=== PATIENT | female | born 2000 | race Caucasian/White ===

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

== ENCOUNTER 2018-02-24 13:29 | Inpatient (IN) | payer MEDICARE, OTHER ==
[2018-02-24 13:37] VITALS: BMI 25.0
[2018-02-24] MEDS ORDERED: SODIUM CHLORIDE 1,000 ML IV STA (14:03)
[2018-02-24] MEDS ORDERED: ACETAMINOPHEN 1000 MG/100 ML VIAL (NON FORMULARY) IVPB ONE (14:03)
[2018-02-24] MEDS ORDERED: ACETAMINOPHEN INJECTION 100 ML IVPB ONE (14:23)
[2018-02-24 14:53] LABS: BASO % 0.5 % (0-2.0); HEMATOCRIT 43.1 % (32.4-45.2); HEMOGLOBIN 14.2 GM/dL (10.7-15.3); LIPASE 122 U/L (73-393); LYMPH % 7.1 % (8-40); MCH 30.2 pg (25.7-33.7); MCHC 32.9 g/dl (32.0-36.0); MEAN CELL VOLUME 91.9 fl (80-96); MEAN PLT VOLUME 9.8 fl (7.5-11.1); MONO % 4.3 % (3.8-10.2); NEUT % 86.1 % (42.8-82.8); PLATELET COUNT 197 K/MM3 (134-434); RBC 4.69 M/mm3 (3.60-5.2); RDW 12.6 % (11.6-15.6); WHITE BLOOD COUNT 14.2 K/mm3 (4.0-10.0)
--- NOTE | 2018-02-24 14:54 | PDOC ---
History of Present Illness - General Chief Complaint: Pain Stated Complaint: RT SIDE PAIN Time Seen by Provider: 02/24/18 13:52 History Source: Patient Exam Limitations: No Limitations - History of Present Illness Initial Comments: 02/24/18 14:34 Pt is a previously healthy 17yo f presenting to ED with complaints of RLQ abdominal pain, fever that started last night. She descibes the pain as stabbing , 9/10 does not radiate, inspiration, sitting up and movement make it worse. Associated with nausea and feelings of passing out. She also admits to feeling short of breath since she cannot breath deeply due to pain. She also has nasal congestion. She denies vomiting, diarrhea, blood in stool, headache, throat pain, urinary symptoms, vaginal bleeding. LMP was 5 mnths. ago. Last meal was yesterday. Drank a snapple 1 hour before coming to ED PMH: none PSH: none Meds: Depo shot 2 months ago Allergies: kndsa Social: occasional marijuana use. Past History - Past Medical History Allergies/Adverse Reactions: Allergies Allergy/AdvReac Type Severity Reaction Status Date / Time No Known Allergies Allergy Verified 02/24/18 13:37 Home Medications: Ambulatory Orders NK [No Known Home Medication] 09/15/16 COPD: No - Suicide/Smoking/Psychosocial Hx Smoking History: Never smoked Have you smoked in the past 12 months: No Hx Alcohol Use: No Drug/Substance Use Hx: No Substance Use Type: None Review of Systems - Review of Systems Constitutional: Yes: Chills, Fever. No: Loss of Appetite HEENTM: Yes: Nose Congestion. No: Recent change in vision, Double Vision, Throat Pain Respiratory: Yes: Shortness of Breath. No: Cough Cardiac (ROS): Yes: Chest Pain (with inspiration). No: Lightheadedness, Palpitations ABD/GI: Yes: Nausea, Abdominal cramping (RLQ pain). No: Blood Streaked Bowels, Constipated, Diarrhea, Vomiting : No: Burning, Dysuria, Hematuria Musculoskeletal: No: Joint Pain, Muscle Pain, Muscle Weakness, Neck Pain Neurological: No: Headache, Numbness, Paresthesia, Seizure *Physical Exam - Vital Signs Last Vital Signs Temp Pulse Resp BP Pulse Ox 101.4 F H 125 H 20 107/57 99 02/24/18 13:35 02/24/18 13:35 02/24/18 13:35 02/24/18 13:35 02/24/18 13:35 - Physical Exam General Appearance: Yes: Nourished, Appropriately Dressed, Mild Distress HEENT: positive: EOMI, LAI, Pharynx Normal. negative: Scleral Icterus (R), Scleral Icterus (L), Pharyngeal Erythema, Sinus Tenderness Neck: positive: Trachea midline, Supple. negative: Lymphadenopathy (R), Lymphadenopathy (L) Respiratory/Chest: positive: Lungs Clear, Normal Breath Sounds. negative: Crackles, Rales, Stridor, Wheezing Cardiovascular: positive: Regular Rhythm, S1, S2. negative: Regular Rate ( tachycadia), Edema, JVD, Murmur Vascular Pulses: Carotid (R): 2+, Carotid (L): 2+, Dorsalis-Pedis (R): 2+, Doralis-Pedis (L): 2+ Female Pelvic Exam: positive: normal external exam, cervical os closed, CMT, discharge (not mucopurulent), other (Exam limited by pt being higly uncomfortable prior to exam. CMT possible, but pt said she was bearing down throughout exam which exacerbats her RLQ pain.). negative: lesions Gastrointestinal/Abdominal: positive: Normal Bowel Sounds, Soft, Tenderness ( RUQ and RLQ). negative: Distended, Guarding, Rebound Musculoskeletal: positive: Normal Inspection. negative: CVA Tenderness Extremity: positive: Normal Capillary Refill Integumentary: positive: Normal Color, Dry, Warm. 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 relations manager II-XII NML intact, Fully Oriented, Alert, Normal Mood/ Affect, Normal Response, Motor Strength /5 ED Treatment Course - LABORATORY CBC & Chemistry Diagram: 02/24/18 14:10 02/24/18 15:20 - Medications Given in the ED: ED Medications Discontinued Medications Generic Name Dose Route Start Last Admin Trade Name Fredomenico PRN Reason Stop Dose Admin Acetaminophen 1,000 mg 02/24/18 14:03 02/24/18 14:28 Ofirmev Injection - IVPB 02/24/18 14:04 1,000 mg ONCE ONE Administration Medical Decision Making - Medical Decision Making 02/24/18 15:42 Pt is a previously healthy 17yo f presenting to ED with complaints of RLQ abdominal pain, fever that started last night. DDX: appendicitis, cholecystitis, pancreatitis, PID, ectopic high suspicion for appendicitis. Will order labs, lipase, lactate, blood cultures, UA, Ucultures, . if negative will send to CT. negative. Will send pt to CT. 02/24/18 19:04 CT showed gallstones in gallbladder. Did not visualize appendix UA positive for infection. Given Ceftriaxone. Consulted Dr. Ying. 02/24/18 19:06 Pt said she had chlamydia when she was 7 and was given treatment. Pt was very tearful, I did not question pt more. Per Dr. Ying, pt had kidney stones in the past on her R side. Unsure if CMT due to patient uncomfortable and bearing down throughout exam. Obtained GC culture. Pt had hx of kidney stones in the past. Ordered renal u/s, transabdominal and transvaginal us. DDX: appendicitis v. PID. V. nephrolithiasis v. Pyelonephritis Pt admitted under Dr. Baumann 02/24/18 23:02 *DC/Admit/Observation/Transfer Diagnosis at time of Disposition: Pyelonephritis RLQ abdominal tenderness Qualifiers: Presence of rebound: absent Qualified Code(s): R10.813 - Right lower quadrant abdominal tenderness UTI (urinary tract infection) Qualifiers: Urinary tract infection type: site unspecified Hematuria presence: without hematuria Qualified Code(s): N39.0 - Urinary tract infection, site not specified Appendicitis, unqualified Qualifiers: Appendicitis type: unspecified Qualified Code(s): K37 - Unspecified appendicitis - Discharge Dispostion Condition at time of disposition: Good Decision to Admit order: Yes - Referrals - Patient Instructions - Post Discharge Activity
[2018-02-24] MEDS ORDERED: morphine CARPU-JECT 2 MG/1 ML DISP.SYRIN IVPUSH ONE ×2 (15:26→20:42)
--- NOTE | 2018-02-24 15:43 | PDOC ---
Attending Attestation - Resident Resident Name: Sa Mimaira - ED Attending Attestation I have performed the following: I have examined & evaluated the patient, The case was reviewed & discussed with the resident, I agree w/resident's findings & plan, Exceptions are as noted - HPI HPI: 02/24/18 15:43 17-year-old female patient with no past medical history presents with right lower quadrant pain since yesterday. Reports fever, chills. Denies dysuria. Reports some nausea. - Physicial Exam PE: 02/24/18 15:44 GENERAL: Awake, alert, and fully oriented, in no acute distress HEAD: No signs of trauma EYES: EOMI, sclera anicteric, conjunctiva clear ENT: Auricles normal inspection, hearing grossly normal, nares patent, oropharynx clear without exudates. Moist mucosa NECK: Normal ROM, supple ABDOMEN: Soft, TTP RLQ. No guarding, no rebound. No masses EXTREMITIES: Normal range of motion, no edema. No clubbing or cyanosis. No cords, erythema, or tenderness NEUROLOGICAL: Cranial nerves II through XII grossly intact. Normal speech, normal gait SKIN: Warm, Dry, normal turgor, no rashes or lesions noted. - Medical Decision Making 02/24/18 15:45 Vital Signs Temp Pulse Resp BP Pulse Ox 101.4 F H 125 H 20 107/57 99 02/24/18 13:35 02/24/18 13:35 02/24/18 13:35 02/24/18 13:35 02/24/18 13:35 Funds are concerning for acute appendicitis. Obtain labs and a CAT scan and pelvis. Urine test and reassess. 02/24/18 17:22 CBC, BMP 02/24/18 14:10 02/24/18 15:20 CMP Sodium 136 mmol/L (136-145) 02/24/18 15:20 Potassium 3.9 mmol/L (3.5-5.1) 02/24/18 15:20 Chloride 103 mmol/L (98-107) 02/24/18 15:20 Carbon Dioxide 23 mmol/L (21-32) 02/24/18 15:20 Anion Gap 10 MMOL/L (8-16) 02/24/18 15:20 BUN 12 mg/dL (7-18) 02/24/18 15:20 Creatinine 0.7 mg/dL (0.55-1.02) 02/24/18 15:20 Creat Clearance w eGFR > 60 (>60) 02/24/18 15:20 Random Glucose 80 mg/dL (74-106) 02/24/18 15:20 Lactic Acid 1.4 mmol/L (0.0-2.0) 02/24/18 14:10 Calcium 8.9 mg/dL (8.5-10.1) 02/24/18 15:20 Total Bilirubin 1.0 mg/dL (0.2-1.0) 02/24/18 15:20 AST 20 U/L (15-37) 02/24/18 15:20 ALT 20 U/L (12-78) 02/24/18 15:20 Alkaline Phosphatase 97 U/L (45-117) 02/24/18 15:20 Creatine Kinase 102 IU/L (26-192) 02/24/18 14:10 Troponin I < 0.02 ng/ml (0.00-0.05) 02/24/18 14:10 Total Protein 8.5 g/dl (6.4-8.2) H 02/24/18 15:20 Albumin 4.5 g/dl (3.4-5.0) 02/24/18 15:20 Lipase 122 U/L (73-393) 02/24/18 14:10 Serum , Qual Negative 02/24/18 13:53 Urine Test Results Urine Color Yellow 02/24/18 15:55 Urine Appearance Cloudy 02/24/18 15:55 Urine pH 5.0 (5.0-8.0) D 02/24/18 15:55 Ur Specific [place] 1.017 (1.001-1.035) 02/24/18 15:55 Urine Protein Negative (NEGATIVE) 02/24/18 15:55 Urine Glucose (UA) Negative (NEGATIVE) 02/24/18 15:55 Urine Ketones 1+ (NEGATIVE) H 02/24/18 15:55 Urine Blood 2+ (NEGATIVE) H 02/24/18 15:55 Urine Nitrite Positive (NEGATIVE) 02/24/18 15:55 Urine Bilirubin Negative (<2.0 mg/dL) 02/24/18 15:55 Ur Leukocyte Esterase 3+ (NEGATIVE) H D 02/24/18 15:55 Ur Epithelial Cells Rare /HPF (FEW) 02/24/18 15:55 Urine Bacteria Rare /hpf (NONE SEEN) 02/24/18 15:55 Urine Mucus Rare 02/24/18 15:55 UA positive for nitrate and 3+ leuk. Will treat as UTI as well. IV antibiotics. CT abdomen and pelvis pending. 02/24/18 18:14 CT scan shows nonvisualization of the appendix, hyperdense material with the gallbaldder which could represent artifact, which could be cholethiasis. Will need RUQ ultrasound. Consult surgery given inability to visualize CT. 02/24/18 18:19 Given the patient's history is concerning for appendicitis, and equivocal CT finding, the patient will likely need at minimum observation admission for serial abdominal exams on IV antibiotics.
[2018-02-24 15:45] LABS: ALBUMIN 4.5 g/dl (3.4-5.0); ALK PHOS 97 U/L (45-117); ANION GAP 10 MMOL/L (8-16); BLOOD UREA NITROGEN 12 mg/dL (7-18); CALCIUM 8.9 mg/dL (8.5-10.1); CHLORIDE 103 mmol/L (98-107); CO2 23 mmol/L (21-32); CREATININE 0.7 mg/dL (0.55-1.02); GLUCOSE,RANDOM 80 mg/dL (74-106); POTASSIUM 3.9 mmol/L (3.5-5.1); SGPT/ALT 20 U/L (12-78); SODIUM 136 mmol/L (136-145); TOT PROT 8.5 g/dl (6.4-8.2)
[2018-02-24 15:46] LABS: SGOT/AST 20 U/L (15-37)
[2018-02-24] MEDS ORDERED: MORPHINE SULFATE 2 MG/ML VIAL ONE ×2 (15:55→20:47)
[2018-02-24 16:14] LABS: URINE APPEARANCE CLOUDY; URINE BILIRUBIN NEGATIVE (<2.0 mg/dL); URINE COLOR YELLOW; URINE GLUCOSE (UA) NEGATIVE (NEGATIVE); URINE KETONE 1+ (NEGATIVE); URINE NITRITE POSITIVE (NEGATIVE); URINE PROTEIN NEGATIVE (NEGATIVE)
[2018-02-24 16:45] LABS: URINE LEUK ESTERASE 3+ (NEGATIVE)
[2018-02-24 16:46] LABS: EPI CELLS RARE /HPF (FEW); URINE BACTERIA RARE /hpf (NONE SEEN); URINE MUCUS RARE
[2018-02-24] MEDS ORDERED: CEFTRIAXONE 1 GM in DEXTROSE 5%-WATER - 100 ML IVPB ONE (18:20)
[2018-02-24] MEDS ORDERED: CEFTRIAXONE 1 GM/50 ML BAG ONE (18:30)
[2018-02-24] MEDS ORDERED: SODIUM CHLORIDE 1,000 ML IV SCH ×2 (19:15→23:00)
--- NOTE | 2018-02-24 20:22 | PDOC ---
*Physical Exam - Vital Signs Last Vital Signs Temp Pulse Resp BP Pulse Ox 98.0 F 110 H 18 110/56 100 02/24/18 18:27 02/24/18 18:27 02/24/18 18:27 02/24/18 18:27 02/24/18 18:27 ED Treatment Course - LABORATORY CBC & Chemistry Diagram: 02/24/18 14:10 02/24/18 15:20 - ADDITIONAL ORDERS Additional order review: Laboratory Results 02/24/18 02/24/18 02/24/18 15:55 15:20 14:10 Sodium 136 Potassium 3.9 Chloride 103 Carbon Dioxide 23 Anion Gap 10 BUN 12 Creatinine 0.7 Creat Clearance w eGFR > 60 Random Glucose 80 Lactic Acid 1.4 Calcium 8.9 Total Bilirubin 1.0 AST 20 ALT 20 Alkaline Phosphatase 97 Creatine Kinase Troponin I Total Protein 8.5 H Albumin 4.5 Lipase Serum , Qual Urine Color Yellow Urine Appearance Cloudy Urine pH 5.0 D Ur Specific [place] 1.017 Urine Protein Negative Urine Glucose (UA) Negative Urine Ketones 1+ H Urine Blood 2+ H Urine Nitrite Positive Urine Bilirubin Negative Urine Urobilinogen 2.0 H Ur Leukocyte Esterase 3+ H D Urine WBC (Auto) 182 Urine RBC (Auto) 8 Ur Epithelial Cells Rare Urine Bacteria Rare Urine Mucus Rare 02/24/18 02/24/18 14:10 13:53 Sodium Potassium Chloride Carbon Dioxide Anion Gap BUN Creatinine Creat Clearance w eGFR Random Glucose Lactic Acid Calcium Total Bilirubin AST ALT Alkaline Phosphatase Creatine Kinase 102 Troponin I < 0.02 Total Protein Albumin Lipase 122 Serum , Qual Negative Urine Color Urine Appearance Urine pH Ur Specific [place] Urine Protein Urine Glucose (UA) Urine Ketones Urine Blood Urine Nitrite Urine Bilirubin Urine Urobilinogen Ur Leukocyte Esterase Urine WBC (Auto) Urine RBC (Auto) Ur Epithelial Cells Urine Bacteria Urine Mucus 02/24/18 14:10 RBC 4.69 MCV 91.9 MCHC 32.9 RDW 12.6 MPV 9.8 Neutrophils % 86.1 H Lymphocytes % 7.1 L Monocytes % 4.3 Eosinophils % 2.0 Basophils % 0.5 - Medications Given in the ED: ED Medications Discontinued Medications Generic Name Dose Route Start Last Admin Trade Name Freq PRN Reason Stop Dose Admin Acetaminophen 1,000 mg 02/24/18 14:03 02/24/18 14:28 Ofirmev Injection - IVPB 02/24/18 14:04 1,000 mg ONCE ONE Administration Sodium Chloride 1,000 mls @ 1,000 mls/hr 02/24/18 14:03 02/24/18 14:28 Normal Saline - IV 02/24/18 15:02 1,000 mls/hr ASDIR STA Administration Ceftriaxone Sodium 1 gm/ 100 mls @ 200 mls/hr 02/24/18 18:20 02/24/18 18:44 Dextrose IVPB 02/24/18 18:49 200 mls/hr ONCE ONE Administration Protocol Morphine Sulfate 2 mg 02/24/18 15:26 02/24/18 16:28 Morphine Injection - IVPUSH 02/24/18 15:27 Not Given ONCE ONE Medical Decision Making - Medical Decision Making 02/24/18 20:21 Pt was signed out to me. She continues to have fever; Pt has either UTI/ pyelonephritis vs appendicitis. She was given ceftriaxone in the ER. Surgery consult is at bedside. Pt will be admitted to med surg for observation. 02/24/18 23:24 Pt has had multipke sonograms ordered. She is awaiting sono results. She was treated with more IVF and IV motrin as per surgery. *DC/Admit/Observation/Transfer Diagnosis at time of Disposition: Pyelonephritis RLQ abdominal tenderness Qualifiers: Presence of rebound: absent Qualified Code(s): R10.813 - Right lower quadrant abdominal tenderness UTI (urinary tract infection) Qualifiers: Urinary tract infection type: site unspecified Hematuria presence: without hematuria Qualified Code(s): N39.0 - Urinary tract infection, site not specified Appendicitis, unqualified Qualifiers: Appendicitis type: unspecified Qualified Code(s): K37 - Unspecified appendicitis - Discharge Dispostion Condition at time of disposition: Good Decision to Admit order: Yes - Referrals - Patient Instructions - Post Discharge Activity
[2018-02-24] MEDS ORDERED: IBUPROFEN 800 MG/8 ML IJ IVPB ONE ×2 (20:27→20:47)
--- NOTE | 2018-02-24 20:35 | PN ---
Teaching Attending Note Name of Resident: Cristian Thakur ATTENDING PHYSICIAN STATEMENT I saw and evaluated the patient. I reviewed the resident's note and discussed the case with the resident. I agree with the resident's findings and plan as documented. SUBJECTIVE: Patient is a 17 year old woman with history of kidney stones who presents to the ER with complaints of right flank pain radiating to the RLQnal pain, fever that started last night. She describes the pain as stabbing, 9/10 does not radiate, inspiration, sitting up and movement make it worse. Associated with nausea and feelings of passing out. She also admits to feeling short of breath since she cannot breath deeply due to pain. She also has nasal congestion. She denies vomiting, diarrhea, blood in stool, headache, throat pain, urinary symptoms, vaginal bleeding. No abnormal vaginal discharge. LMP was 5 months ago. Had Depo injections 2 months ago - which prevent her from having her periods. OBJECTIVE: Alert Vital Signs Period Temp Pulse Resp BP Sys/Moreno Pulse Ox Last 24 Hr 98 F-101.4 F 110-125 18-20 105-110/56-59 98-100 HEENT: No Jaundice, eye redness or discharge, PERRLA, EOMI. Normocephalic, atraumatic. External ears are normal and hearing is grossly intact. No nasal discharge. Neck: Supple, nontender. No palpable adenopathy or thyromegaly. No JVD Chest: Good effort. Clear to auscultation and percussion. Heart: Regular. No S3, rub or murmur Abdomen: Not distended, soft, RLQ tenderness and CVAT; no HSM. No rebound or guarding. Normoactive bowel sounds. Ext: Peripheral pulses intact. No leg edema. Skin: Warm and dry. No petechiae, rash or ecchymosis. Neuro: Alert. Oriented x3. CN 2-12 grossly intact. Sensation grossly intact in all four extremities and DTR are symmetric. Pelvic exam: Done by the ER staff showed diffuse tenderness with any movement - no specific cervical motion tenderness and no abnormal discharge Current Medications Generic Name Dose Route Start Last Admin Trade Name Freq PRN Reason Stop Dose Admin Sodium Chloride 1,000 mls @ 150 mls/hr 02/24/18 19:15 Normal Saline - IV ASDIR [facility] Home Medications Medication Instructions Recorded NK [No Known Home Medication] 09/15/16 Abnormal Lab Results 02/24/18 02/24/18 02/24/18 14:10 15:20 15:55 WBC 14.2 H Absolute Neuts (auto) 12.2 H Neutrophils % 86.1 H Lymphocytes % 7.1 L Total Protein 8.5 H Urine Ketones 1+ H Urine Blood 2+ H Urine Urobilinogen 2.0 H Ur Leukocyte Esterase 3+ H D ASSESSMENT AND PLAN: 1. Pyelonephritis - CT abdomen did not show a kidney stone, but the appendix was not visualized. Started on Rocephin 1 gm IV q 24 hours. Continue IV NS. No evidence of appendicitis on CT scan. IV morphine for pain control. Cultures taken for N. gonorrhea and chlamydia. 2. DVT prophylaxis - Lovenox 40 mg SQ q 24 hours. 3. Advance directives - Full code
[2018-02-24] MEDS ORDERED: SODIUM CHLORIDE 0.9% 500 ML INFUS.BAG IV ONE (20:42)
--- NOTE | 2018-02-24 21:10 | CONSULT ---
Consult Consult Specialty:: General Surgery Referred by:: Nusrat Guillermo Reason for Consultation:: RLQ pain, fever, wbc - History of Present Illness Chief Complaint: RLQ pain, fever History of Present Illness: 17yo healthy F with h/o kidney stones 2-3 mos ago dx at [facility], treated with PCN and ibuprofen, has had stuffy nose for about 2 weeks. Was normal yesterday at breakfast and lunch, at work, then walking to her car up a hill from work ~7:30 pm, had difficulty breathing normally. When she got out of the car and walked again, she felt RLQ pain, initially thought she might be constipated. She had a normal, soft formed stool, but the pain persisted. It has always been RLQ pain. She had a small piece of chicken but nothing else for dinner. She also had subjective fever and chills last night, which was better this morning. She went to work today for a couple of hours, but the pain became severe, and she got dizzy/lightheaded, and left to come to the ER ~1pm. She has had some Snapple fruit punch today, up till arrival, but nothing else and is not hungry. She thought about taking ibuprofen for pain, but couldn't eat anything, so did not. She has had nausea, but no vomiting. The pain is worse than when she had her kidney stones (the pain then was on the left, but she said the stones were supposedly on the right) and also hurts in back on the right. More in back when lying down, more in front when up and walking. It hurts when she moves or tightens up her body, though the medicine has helped a little in the ER. She is febrile in ER 101.4, with wbc 14.2 and UA + for LE/ nitrite/WBC 182/RBC 8/1+ ketones/rare epi/rare bacteria. She got a dose of Ceftriaxone, pain meds and IV fluids. CT was done with IV contrast only, initially without clear visualization of appendix, but no inflammatory changes in the region. On review with radiology, appendix is likely seen, but does not appear enlarged or inflamed. She has a dominant follicle in right ovary with some endometrial fluid present, but no free fluid. No visualized stones in kidneys or ureters. No hydronephrosis. Possible subtle changes in right kidney that could be compatible with pyelonephritis, but no significant surrounding inflammation. ER did pelvic exam, during which patient was in pain, though CMT seemed negative; there was no discharge, and GC culture was taken. Surgery is asked to evaluate for possible appendicitis. She is seen and examined in stretcher in ER holding with boyfriend at bedside. She is in pain and crying some but able to cooperate with exam. She feels very warm to touch, but is feeling chilled. She voided just prior to the pelvic exam. She is thirsty/feeling dry, but not hungry. She admits to unprotected sexual activity last 2-3 nights ago, but denies history of STDs. Boyfriend also denies symptoms of STDs. Per ER - she had chlamydia in the past at age 7. 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 denies: Recent Change in Vision HENT: reports: Nasal Congestion (x ~2 wks now). denies: Difficult Swallowing, Throat Pain Neck: denies: Swollen Glands, Tenderness Cardiovascular: denies: Chest Pain, Palpitations Respiratory: reports: SOB (hurts to take a deep breath), SOB on Exertion. denies: Cough Gastrointestinal: reports: Abdominal Pain (with hpi), Nausea (with hpi). denies : Constipation, Diarrhea, Vomiting Genitourinary: denies: Burning, Discharge, Dysuria, Hematuria, Menses, Vaginal Bleeding Musculoskeletal: reports: Back Pain (with hpi). denies: Joint Pain, Muscle Pain Integumentary: denies: Change in Color, Rash Neurological: reports: Dizziness (this morning at work). denies: Headache, Syncope Psychiatric: denies: Anxiety, Depression Physical Exam Vital Signs: Vital Signs Temperature 98.0 F 02/24/18 18:27 Pulse Rate 110 H 02/24/18 18:27 Respiratory Rate 18 02/24/18 18:27 Blood Pressure 110/56 02/24/18 18: O2 Sat by Pulse Oximetry (%) 100 02/24/18 18:27 Constitutional: Yes: Well Nourished, Calm, Moderate Distress (secondary to pain) , Other (crying, skin hot and dry) Eyes: Yes: Conjunctiva Clear, EOM Intact, Tearing, Other (glasses) HENT: Yes: Atraumatic, Normocephalic Neck: Yes: Supple, Trachea Midline Cardiovascular: Yes: Tachycardia. No: Pulse Irregular Respiratory: Yes: Regular, CTA Bilaterally Gastrointestinal: Yes: Normal Bowel Sounds, Soft, Tenderness (RLQ at McBurney's and slightly above, also around to R CVA, less RUQ referred to RLQ). No: Distention, Tenderness, Epigastrium, Tenderness, Rebound ...Rectal Exam: Yes: Deferred Renal/: Yes: CVA Tenderness - Right. No: CVA Tenderness - Left, Menses Present, Vaginal Discharge (per ER pelvic) Musculoskeletal: No: Joint Stiffness, Joint Swelling Extremities: No: Cool, Cyanosis Edema: No Peripheral Pulses WNL: Yes Integumentary: Yes: Body Piercing (periumbilical), Tattoos. No: Jaundice, Rash Neurological: Yes: Alert, Oriented Labs: CBC, BMP 02/24/18 14:10 02/24/18 15:20 Imaging - Results Cat Scan: Report Reviewed, Image Reviewed (images reviewed personally and discussed with radiologist by phone - appendix likely visualized with tip by iliac vessel, no significant inflammatory changes, + intraluminal air; no apparent renal or ureteral stones; uterus with some endometrial fluid, dominant follicle in right ovary, no significant free fluid, no obstruction, no free air) Ultrasound: Pending Problem List - Problems (1) RLQ abdominal pain Assessment/Plan: suggestive of appendicitis, but CT without inflammatory changes in the area and normal-appearing appendix could be related to PID or R pyelonephritis/UTI? US pelvic, transvag and renal pending given Ceftriaxone already for UTI would give nonnarcotic pain meds prn for now agree with observation pending results of above consider OBSTETRICS NURSE PRACTITIONER consultation serial exams trend labs consider repeat CT imaging if other studies negative keep NPO, aggressive IV fluids pending clinical course and above studies, would consider offering diagnostic laparoscopy, possible appendectomy Code(s): R10.31 - RIGHT LOWER QUADRANT PAIN (2) RLQ abdominal tenderness Assessment/Plan: also R CVA tenderness Code(s): R10.813 - RIGHT LOWER QUADRANT ABDOMINAL TENDERNESS Qualifiers: Presence of rebound: absent Qualified Code(s): R10.813 - Right lower quadrant abdominal tenderness (3) Fever presenting with conditions classified elsewhere Code(s): R50.81 - FEVER PRESENTING WITH CONDITIONS CLASSIFIED ELSEWHERE (4) Leukocytosis Code(s): D72.829 - ELEVATED WHITE BLOOD CELL COUNT, UNSPECIFIED Qualifiers: Leukocytosis type: bandemia Qualified Code(s): D72.825 - Bandemia (5) Nausea alone Code(s): R11.0 - NAUSEA (6) Anorexia Code(s): R63.0 - ANOREXIA (7) Acute cystitis with hematuria Assessment/Plan: only 8 RBC present on UA WBC/nitrite/LE positive - rare bacteria send urine culture GC culture sent by ER at pelvic Code(s): N30.01 - ACUTE CYSTITIS WITH HEMATURIA
[2018-02-24 21:23] LABS: INR 1.46 (0.83-1.09); PROTHROMBIN TIME (PATIENT) 16.5 SEC (9.7-13.0)
[2018-02-24] MEDS ORDERED: MORPHINE SULFATE 2 MG/ML VIAL IVPUSH PRN (22:28)
--- NOTE | 2018-02-24 22:47 | HP ---
CHIEF COMPLAINT: Abdominal pain PCP: none HISTORY OF PRESENT ILLNESS: The patient is a 17 yo f w/ PMH Kidney Stones who comes into the ED c/o a 1 day hx abdominal pain and fever. The patient describes an acute onset RLQ abdominal pain earlier today felt while walking to her car. The patient describes the pain as 9/10 in intensity, sharp in quality and present simultaneously in the RLQ and in the right flank. The pain is constant, exacerbated by movement or tensing of her body, and alleviated by lying still. The pain is associated with nausea, lightheadedness, subjective fevers and chills, but the patient denies vomiting. The Patient states that this pain is different from the pain she felt when she had her kidney stone. Patient denies CP, SOB, dysuria, urinary frequency, urgency. LMP 5 months ago. Patient receives depo shots for contraception with the last one being 2 months ago. Patient is in monogmous sexual relationship with her boyfriend. Pelvic exam done by ED resident showed no purulent discharge and diffuse pain throughout exam, making assessment of cervical motion tenderness difficult. ER course was notable for: (1) WBC 14.2 (2) UA showing 3+ leuk, 182 WBC and 2+ blood (3) 1g rocephin (4) CT ap w/ nonvisualizaion on appendix per [facility] Recent Travel: none PAST MEDICAL HISTORY: Kidney stones approx 4 months ago diagnosed by [address] and treated with pain control and PCN PAST SURGICAL HISTORY: denies Social History: Smoking: denies Alcohol: denies Drugs: occasional marijuana smoker Family History: Grandmother with stage 4 colon cancer diagnosed in her 60's Allergies No Known Allergies Allergy (Verified 02/24/18 13:37) HOME MEDICATIONS: Home Medications Medication Instructions Recorded NK [No Known Home Medication] 09/15/16 REVIEW OF SYSTEMS CONSTITUTIONAL: Absent: diaphoresis, generalized weakness, weight change HEENT: Absent: rhinorrhea, nasal congestion, throat pain, throat swelling, difficulty swallowing, mouth swelling, ear pain, eye pain, visual changes CARDIOVASCULAR: Absent: chest pain, syncope, palpitations, irregular heart rate, lightheadedness , peripheral edema RESPIRATORY: Absent: cough, dyspnea with exertion, orthopnea, wheezing, stridor, hemoptysis GASTROINTESTINAL: Absent: vomiting, diarrhea, constipation, melena, hematochezia GENITOURINARY: Absent: dysuria, frequency, urgency, hesitancy, hematuria, flank pain, genital pain MUSCULOSKELETAL: Absent: myalgia, arthralgia, joint swelling, back pain, neck pain SKIN: Absent: rash, itching, pallor HEMATOLOGIC/IMMUNOLOGIC: Absent: easy bleeding, easy bruising, lymphadenopathy, frequent infections ENDOCRINE: Absent: unexplained weight gain, unexplained weight loss, heat intolerance, cold intolerance NEUROLOGIC: Absent: headache, focal weakness or paresthesias, dizziness, unsteady gait, seizure, mental status changes, bladder or bowel incontinence PSYCHIATRIC: Absent: anxiety, depression, suicidal or homicidal ideation, hallucinations. PHYSICAL EXAMINATION Vital Signs - 24 hr 02/24/18 02/24/18 02/24/18 13:35 16:01 18:27 Temperature 101.4 F H 98 F 98.0 F Pulse Rate 125 H Pulse Rate [ 110 H 110 H Apical] Respiratory 20 18 Rate Blood Pressure 107/57 Blood Pressure 105/59 110/56 [Left Arm] O2 Sat by Pulse 99 98 100 Oximetry (%) 02/24/18 19:45 Temperature Pulse Rate Pulse Rate [ Apical] Respiratory Rate Blood Pressure Blood Pressure [Left Arm] O2 Sat by Pulse 100 Oximetry (%) GENERAL: Awake, alert, and fully oriented, in no acute distress. HEAD: Normal with no signs of trauma. EYES: Pupils equal, round and reactive to light, extraocular movements intact, sclera anicteric, conjunctiva clear. No lid lag. EARS, NOSE, THROAT: oropharynx clear without exudates. Moist mucous membranes. NECK: Normal range of motion, supple without lymphadenopathy, JVD, or masses. LUNGS: Breath sounds equal, clear to auscultation bilaterally. No wheezes, and no crackles. No accessory muscle use. HEART: Regular rhythm, Tachycardic, normal S1 and S2 without murmur, rub or gallop. ABDOMEN: Soft, not distended, normoactive bowel sounds, no guarding. There is tenderness to palpation in the RLQ and the right flank without rebound. There is CVA tenderness on the right. LOWER EXTREMITIES: 2+ pulses, warm, well-perfused. No calf tenderness. No peripheral edema. NEUROLOGICAL: Cranial nerves II-X intact. Normal speech. PSYCHIATRIC: Cooperative. Good eye contact. Appropriate mood and affect. SKIN: Warm, dry, normal turgor, no rashes or lesions noted, normal capillary refill. Laboratory Results - last 24 hr 02/24/18 02/24/18 02/24/18 13:53 14:10 14:10 WBC 14.2 H RBC 4.69 Hgb 14.2 Hct 43.1 MCV 91.9 MCH 30.2 MCHC 32.9 RDW 12.6 Plt Count 197 MPV 9.8 Absolute Neuts (auto) 12.2 H Neutrophils % 86.1 H Lymphocytes % 7.1 L Monocytes % 4.3 Eosinophils % 2.0 Basophils % 0.5 Nucleated RBC % 0 PT with INR INR PTT (Actin FS) Sodium Potassium Chloride Carbon Dioxide Anion Gap BUN Creatinine Creat Clearance w eGFR Random Glucose Lactic Acid Calcium Total Bilirubin AST ALT Alkaline Phosphatase Creatine Kinase 102 Troponin I < 0.02 Total Protein Albumin Lipase 122 Serum , Qual Negative Urine Color Urine Appearance Urine pH Ur Specific [place] Urine Protein Urine Glucose (UA) Urine Ketones Urine Blood Urine Nitrite Urine Bilirubin Urine Urobilinogen Ur Leukocyte Esterase Urine WBC (Auto) Urine RBC (Auto) Ur Epithelial Cells Urine Bacteria Urine Mucus Blood Type Antibody Screen 02/24/18 02/24/18 02/24/18 14:10 15:20 15:55 WBC RBC Hgb Hct MCV MCH MCHC RDW Plt Count MPV Absolute Neuts (auto) Neutrophils % Lymphocytes % Monocytes % Eosinophils % Basophils % Nucleated RBC % PT with INR INR PTT (Actin FS) Sodium 136 Potassium 3.9 Chloride 103 Carbon Dioxide 23 Anion Gap 10 BUN 12 Creatinine 0.7 Creat Clearance w eGFR > 60 Random Glucose 80 Lactic Acid 1.4 Calcium 8.9 Total Bilirubin 1.0 AST 20 ALT 20 Alkaline Phosphatase 97 Creatine Kinase Troponin I Total Protein 8.5 H Albumin 4.5 Lipase Serum , Qual Urine Color Yellow Urine Appearance Cloudy Urine pH 5.0 D Ur Specific [place] 1.017 Urine Protein Negative Urine Glucose (UA) Negative Urine Ketones 1+ H Urine Blood 2+ H Urine Nitrite Positive Urine Bilirubin Negative Urine Urobilinogen 2.0 H Ur Leukocyte Esterase 3+ H D Urine WBC (Auto) 182 Urine RBC (Auto) 8 Ur Epithelial Cells Rare Urine Bacteria Rare Urine Mucus Rare Blood Type Antibody Screen 02/24/18 02/24/18 02/24/18 21:02 21:02 21:02 WBC RBC Hgb Hct MCV MCH MCHC RDW Plt Count MPV Absolute Neuts (auto) Neutrophils % Lymphocytes % Monocytes % Eosinophils % Basophils % Nucleated RBC % PT with INR INR PTT (Actin FS) 28.0 Sodium Potassium Chloride Carbon Dioxide Anion Gap BUN Creatinine Creat Clearance w eGFR Random Glucose Lactic Acid 1.1 Calcium Total Bilirubin AST ALT Alkaline Phosphatase Creatine Kinase Troponin I Total Protein Albumin Lipase Serum , Qual Urine Color Urine Appearance Urine pH Ur Specific [place] Urine Protein Urine Glucose (UA) Urine Ketones Urine Blood Urine Nitrite Urine Bilirubin Urine Urobilinogen Ur Leukocyte Esterase Urine WBC (Auto) Urine RBC (Auto) Ur Epithelial Cells Urine Bacteria Urine Mucus Blood Type B POSITIVE Antibody Screen Negative 02/24/18 21:02 WBC RBC Hgb Hct MCV MCH MCHC RDW Plt Count MPV Absolute Neuts (auto) Neutrophils % Lymphocytes % Monocytes % Eosinophils % Basophils % Nucleated RBC % PT with INR 16.50 H INR 1.46 H PTT (Actin FS) Sodium Potassium Chloride Carbon Dioxide Anion Gap BUN Creatinine Creat Clearance w eGFR Random Glucose Lactic Acid Calcium Total Bilirubin AST ALT Alkaline Phosphatase Creatine Kinase Troponin I Total Protein Albumin Lipase Serum , Qual Urine Color Urine Appearance Urine pH Ur Specific [place] Urine Protein Urine Glucose (UA) Urine Ketones Urine Blood Urine Nitrite Urine Bilirubin Urine Urobilinogen Ur Leukocyte Esterase Urine WBC (Auto) Urine RBC (Auto) Ur Epithelial Cells Urine Bacteria Urine Mucus Blood Type Antibody Screen ASSESSMENT/PLAN: The patient is a 17 yo f w/ PMH nehphrolithiasis who comes into the ED c/o a 1 day hx RLQ and right flank pain found to have UTI. #Abdominal and flank pain likely 2/2 pyelonephritis r/o appendicitis -CTAP [facility] read cannot visualize appendix; per surgery note, repeat read shows appendix without inflammation -f/u final read -UA positive for UTI -upreg negative -transvaginal, abdominal and renal US ordered in ED -Urine culture ordered -s/p 1g rocephin in ED -c/w rocephin 1g daily -surgery consulted -f/u GC, chlamydia cultures -NS @ 100 #FEN -NS @ 100 -lytes WNL -regular diet #Prophy -Lovenox 40mg q24 SQ #Dispo -admit med surg Visit type - Emergency Visit Emergency Visit: Yes ED Registration Date: 02/24/18 Care time: The patient presented to the Emergency Department on the above date and was hospitalized for further evaluation of their emergent condition. - New Patient This patient is new to me today: Yes Date on this admission: 02/25/18 - Critical Care Critical Care patient: No Hospitalist Screening - Colonoscopy Questionnaire Colonoscopy Questionnaire: Colonoscopy Questionnaire - Patient: 50 - 75 years old and never had a screening colonoscopy: Unknown History of colon or rectal polyps, or CA: Unknown History of IBD, Crohn's disease or UC: Unknown History of abdominal radiation therapy as a child: Unknown - Relative: 1 with colon or rectal CA, or polyps at age 60 or younger: Unknown Colon or rectal CA diagnosed at age 45 or younger: Unknown Multiple relatives with colon or rectal CA: Unknown - Outcome: Screening Result: Negative Screen
[2018-02-25 08:25] LABS: HEMATOCRIT 36.8 % (32.4-45.2); HEMOGLOBIN 12.2 GM/dL (10.7-15.3); MCH 30.4 pg (25.7-33.7); MCHC 33.1 g/dl (32.0-36.0); MEAN CELL VOLUME 91.9 fl (80-96); MEAN PLT VOLUME 9.8 fl (7.5-11.1); PLATELET COUNT 156 K/MM3 (134-434); WHITE BLOOD COUNT 17.3 K/mm3 (4.0-10.0)
[2018-02-25 09:00] LABS: CHLORIDE 109 mmol/L (98-107); POTASSIUM 3.9 mmol/L (3.5-5.1); SODIUM 139 mmol/L (136-145)
[2018-02-25] MEDS ORDERED: DEXTROSE 5%-WATER - 50 ML IVPB ONE (09:04)
[2018-02-25] MEDS ORDERED: cefTRIAXone SODIUM 1 GM VIAL ONE (09:04)
[2018-02-25 09:06] LABS: ANION GAP 11 MMOL/L (8-16); BLOOD UREA NITROGEN 8 mg/dL (7-18); CALCIUM 8.1 mg/dL (8.5-10.1); CO2 19 mmol/L (21-32); CREATININE 0.5 mg/dL (0.55-1.02); GLUCOSE,RANDOM 76 mg/dL (74-106); MAGNESIUM 2.1 mg/dL (1.8-2.4); PHOSPHOROUS 2.9 mg/dL (2.5-4.9)
[2018-02-25] MEDS ORDERED: ACETAMINOPHEN 1000 MG/100 ML VIAL (NON FORMULARY) IVPB PRN (09:19)
[2018-02-25 09:21] LABS: INR 1.58 (0.83-1.09); PROTHROMBIN TIME (PATIENT) 17.9 SEC (9.7-13.0)
--- NOTE | 2018-02-25 09:24 | PN ---
Physical Exam: SUBJECTIVE: Patient seen and examined Patient is c/o having right flank pain started 2 days ago with worsening symptoms today, tachycardic and warm to touch. No similar episodes before. Had 2 UTIs in the past as per Patient. OBJECTIVE: Vital Signs Temperature 98.1 F 02/25/18 07:25 Pulse Rate 117 H 02/25/18 07:25 Respiratory Rate 18 02/25/18 03:00 Blood Pressure 99/61 02/25/18 07:25 O2 Sat by Pulse Oximetry (%) 100 02/25/18 03:00 Selected Entries 02/24/18 02/24/18 02/24/18 13:35 16:01 18:27 Temperature 101.4 F H 98 F 98.0 F Temperature Source Pulse Rate 125 H Pulse Rate [ 110 H 110 H Apical] 02/24/18 23:00 Temperature Temperature Oral Source Pulse Rate 110 H Pulse Rate [ Apical] Laboratory Tests 02/24/18 02/25/18 14:10 07:00 WBC 14.2 H 17.3 H GENERAL: The patient is awake, alert, and fully oriented, in mild distress. HEAD: Normal with no signs of trauma. EYES: PERRL, extraocular movements intact, sclera anicteric, conjunctiva clear. ENT: Ears normal, oropharynx clear without exudates, moist mucous membranes. NECK: Trachea midline, full range of motion, supple. LUNGS: Breath sounds equal, clear to auscultation bilaterally, no wheezes, no crackles, no accessory muscle use. HEART: tachycardic rate of 110's , S1, S2 without murmur, rub or gallop. ABDOMEN: Soft, right flank pain tenderness , nondistended, normoactive bowel sounds, volunatary guarding right flank area with CVA tenderness, no rebound, no hepatosplenomegaly, no masses appreciated. EXTREMITIES: 2+ pulses, warm, well-perfused, no edema. NEUROLOGICAL: Cranial nerves II through XII grossly intact. Normal speech, gait not observed. PSYCH: Normal mood, normal affect. SKIN: Warm to touch , dry, normal turgor, no rashes or lesions noted CBCD WBC 17.3 K/mm3 (4.0-10.0) H 02/25/18 07:00 RBC 4.00 M/mm3 (3.60-5.2) 02/25/18 07:00 Hgb 12.2 GM/dL (10.7-15.3) 02/25/18 07:00 Hct 36.8 % (32.4-45.2) 02/25/18 07:00 MCV 91.9 fl (80-96) 02/25/18 07:00 MCHC 33.1 g/dl (32.0-36.0) 02/25/18 07:00 RDW 13.0 % (11.6-15.6) 02/25/18 07:00 Plt Count 156 K/MM3 (134-434) D 02/25/18 07:00 MPV 9.8 fl (7.5-11.1) 02/25/18 07:00 CMP Sodium 139 mmol/L (136-145) 02/25/18 07:00 Potassium 3.9 mmol/L (3.5-5.1) 02/25/18 07:00 Chloride 109 mmol/L (98-107) H 02/25/18 07:00 Carbon Dioxide 19 mmol/L (21-32) L 02/25/18 07:00 Anion Gap 11 MMOL/L (8-16) 02/25/18 07:00 BUN 8 mg/dL (7-18) 02/25/18 07:00 Creatinine 0.5 mg/dL (0.55-1.02) L 02/25/18 07:00 Creat Clearance w eGFR > 60 (>60) 02/25/18 07:00 Random Glucose 76 mg/dL (74-106) 02/25/18 07:00 Calcium 8.1 mg/dL (8.5-10.1) L 02/25/18 07:00 Total Bilirubin 1.0 mg/dL (0.2-1.0) 02/24/18 15:20 AST 20 U/L (15-37) 02/24/18 15:20 ALT 20 U/L (12-78) 02/24/18 15:20 Alkaline Phosphatase 97 U/L (45-117) 02/24/18 15:20 Total Protein 8.5 g/dl (6.4-8.2) H 02/24/18 15:20 Albumin 4.5 g/dl (3.4-5.0) 02/24/18 15:20 CARDIAC ENZYMES Creatine Kinase 102 IU/L (26-192) 02/24/18 14:10 Troponin I < 0.02 ng/ml (0.00-0.05) 02/24/18 14:10 Active Medications Generic Name Dose Route Start Last Admin Trade Name Freq PRN Reason Stop Dose Admin Acetaminophen 1,000 mg 02/25/18 09:19 Ofirmev Injection - IVPB Q6H PRN FEVER Enoxaparin Sodium 40 mg 02/25/18 10:00 02/25/18 09:09 Lovenox - SQ Not Given DAILY NICA Sodium Chloride 1,000 mls @ 100 mls/hr 02/24/18 23:00 02/25/18 03:30 Normal Saline - IV 100 mls/hr ASDIR NICA Administration Ceftriaxone Sodium 2 gm/ 50 mls @ 100 mls/hr 02/25/18 10:00 Dextrose IVPB DAILY NICA Morphine Sulfate 2 mg 02/24/18 22:28 Morphine Sulfate IVPUSH Q4H PRN PAIN LEVEL 6-10 Home Medications Medication Instructions Recorded NK [No Known Home Medication] 09/15/16 Urine Test Results Urine Color Yellow 02/24/18 15:55 Urine Appearance Cloudy 02/24/18 15:55 Urine pH 5.0 (5.0-8.0) D 02/24/18 15:55 Ur Specific [place] 1.017 (1.001-1.035) 02/24/18 15:55 Urine Protein Negative (NEGATIVE) 02/24/18 15:55 Urine Glucose (UA) Negative (NEGATIVE) 02/24/18 15:55 Urine Ketones 1+ (NEGATIVE) H 02/24/18 15:55 Urine Blood 2+ (NEGATIVE) H 02/24/18 15:55 Urine Nitrite Positive (NEGATIVE) 02/24/18 15:55 Urine Bilirubin Negative (<2.0 mg/dL) 02/24/18 15:55 Ur Leukocyte Esterase 3+ (NEGATIVE) H D 02/24/18 15:55 Ur Epithelial Cells Rare /HPF (FEW) 02/24/18 15:55 Urine Bacteria Rare /hpf (NONE SEEN) 02/24/18 15:55 Urine Mucus Rare 02/24/18 15:55 ASSESSMENT/PLAN: The patient is a 17 yo female with PMHx of Kidney Stones who comes into the ED c /o right flank pain , with fever. # Acute sepsis (tachycardia and Fever) due to have right pylonephritis : ID and uro consult appreciated. increased the dose of Rocephin to 2gm s per day. IVF 150cc /hr. Tylenol IV pain and fever. Patient is refusing Morphine. CT of abdomen reprots: acute right pylonephritis, Renal US: acute right Pylonephrities , Vaginal US: normal # Acute Pylonephritis on IV Rocephin 2gm s per day. DVt Px: Lovenox critical care time of 35m Visit type - Emergency Visit Emergency Visit: Yes ED Registration Date: 02/24/18 Care time: The patient presented to the Emergency Department on the above date and was hospitalized for further evaluation of their emergent condition. - New Patient This patient is new to me today: Yes Date on this admission: 02/25/18 - Critical Care Critical Care patient: Yes Total Critical Care Time (in minutes): 35 Critical Care Statement: The care of this patient involved high complexity decision making to prevent further life threatening deterioration of the patient 's condition and/or to evaluate & treat vital organ system(s) failure or risk of failure. - Discharge Referral Referred to [facility] No
[2018-02-25] MEDS ORDERED: CEFTRIAXONE 2 GM in DEXTROSE 5%-WATER 100 ML IVPB SCH (10:00)
[2018-02-25] MEDS ORDERED: ENOXAPARIN NA (PORCINE) 40 MG/0.4 ML DISP.SYRIN SQ SCH (10:00)
[2018-02-25] MEDS ORDERED: CEFTRIAXONE 1 GM in DEXTROSE 5%-WATER - 50 ML IVPB SCH (10:00)
[2018-02-25] MEDS ORDERED: DEXTROSE 5%-WATER 100 ML IVPB ONE (10:08)
--- NOTE | 2018-02-25 11:22 | PN ---
Progress Note, Physician History of Present Illness: No overnight events. Pt had pelvic/transvag/renal US last night and CT reread confirming right pyelonephritis. Pt on antibiotics and seen and examined in her bed. Feeling a little better - pain is now bearable, and mostly now in her right back. She has no nausea, temp is down. She is hungry. She did get some sleep. - Current Medication List Current Medications: Active Medications Acetaminophen (Ofirmev Injection -) 1,000 mg IVPB Q6H PRN PRN Reason: FEVER Last Admin: 02/25/18 10:10 Dose: 1,000 mg Enoxaparin Sodium (Lovenox -) 40 mg SQ DAILY [facility] Last Admin: 02/25/18 09:09 Dose: Not Given Sodium Chloride (Normal Saline -) 1,000 mls @ 100 mls/hr IV ASDIR [facility] Last Admin: 02/25/18 03:30 Dose: 100 mls/hr Ceftriaxone Sodium 2 gm/ (Dextrose) 100 mls @ 100 mls/hr IVPB DAILY [facility] Last Admin: 02/25/18 10:11 Dose: 100 mls/hr Morphine Sulfate (Morphine Sulfate) 2 mg IVPUSH Q4H PRN PRN Reason: PAIN LEVEL 6-10 - Objective Vital Signs: Vital Signs Temperature 100.3 F H 02/25/18 08:40 Pulse Rate 130 H 02/25/18 08:40 Respiratory Rate 25 H 02/25/18 08:40 Blood Pressure 111/62 02/25/18 08:40 O2 Sat by Pulse Oximetry (%) 100 02/25/18 03:00 Constitutional: Yes: Well Nourished, No Distress, Calm, Other (skin warm, but not as much as last night) Eyes: Yes: Conjunctiva Clear, EOM Intact HENT: Yes: Atraumatic, Normocephalic Cardiovascular: Yes: Tachycardia. No: Pulse Irregular Gastrointestinal: Yes: Soft. No: Distention, Tenderness Genitourinary: Yes: CVA Tenderness - Right. No: CVA Tenderness - Left Extremities: No: Cool, Cyanosis Integumentary: Yes: Tattoos. No: Jaundice, Rash Neurological: Yes: Alert, Oriented Labs: CBC, BMP 02/25/18 07:00 02/25/18 07:00 INR, PTT INR 1.58 (0.83-1.09) H 02/25/18 07:00 wbc up a bit from 14 CO2 down INR elevated micro pending - urine, GC/chlamydia Problem List - Problems (1) Acute pyelonephritis Assessment/Plan: right side abx per ID urology consulted not appendicitis no need for surgical intervention will sign off - thank you Code(s): N10 - ACUTE PYELONEPHRITIS (2) Acute cystitis with hematuria Assessment/Plan: with pyelo only 8 RBC present on UA WBC/nitrite/LE positive - rare bacteria urine culture pending GC culture sent by ER at pelvic Code(s): N30.01 - ACUTE CYSTITIS WITH HEMATURIA (3) RLQ abdominal pain Assessment/Plan: more flank pain than abdominal Code(s): R10.31 - RIGHT LOWER QUADRANT PAIN (4) RLQ abdominal tenderness Assessment/Plan: more CVA tenderness - no sig RLQ tenderness this am Code(s): R10.813 - RIGHT LOWER QUADRANT ABDOMINAL TENDERNESS Qualifiers: Presence of rebound: absent Qualified Code(s): R10.813 - Right lower quadrant abdominal tenderness (5) Fever presenting with conditions classified elsewhere Assessment/Plan: temp down a bit still tachy Code(s): R50.81 - FEVER PRESENTING WITH CONDITIONS CLASSIFIED ELSEWHERE (6) Leukocytosis Code(s): D72.829 - ELEVATED WHITE BLOOD CELL COUNT, UNSPECIFIED Qualifiers: Leukocytosis type: bandemia Qualified Code(s): D72.825 - Bandemia (7) Nausea alone Assessment/Plan: resolved Code(s): R11.0 - NAUSEA (8) Anorexia Assessment/Plan: resolved Code(s): R63.0 - ANOREXIA
--- NOTE | 2018-02-25 11:27 | PN ---
Progress Note (short form) - Note Progress Note: ID consult dictated imp/reccd 17 yo female admitted with fever and abdominal pain now with right CVAT and fevers +pyuria no recent antibiotics no history of frequent UTIS renal stones about 3 months ago Right pyelonephritis continue ceftriaxone continue IVF f/u cultures
[2018-02-25 19:14] VITALS: BP 101/60; PULSE 108; TEMP 98.2
--- NOTE | 2018-02-25 19:55 | HOSP ---
Subjective - Review of Symptoms Events since last encounter: Patient expressed desire to leave against medical advice. The risks with leaving against medical advice, such as but not limited to, worsening infection , sepsis, irreversible kidney damage, permanent disability and , were expressed to the patient. Patient verbalized understanding of these risks and still wants to leave AMA. Patient signed document and document was placed in chart. Physical Examination Vital Signs: Vital Signs Temperature 98.2 F 02/25/18 17:12 Pulse Rate 108 H 02/25/18 17:12 Respiratory Rate 18 02/25/18 17:12 Blood Pressure 101/60 02/25/18 17:12 O2 Sat by Pulse Oximetry (%) 100 02/25/18 03:00 Labs: CBC, BMP 02/25/18 07:00 02/25/18 07:00 Visit type - Emergency Visit Emergency Visit: Yes ED Registration Date: 02/24/18 Care time: The patient presented to the Emergency Department on the above date and was hospitalized for further evaluation of their emergent condition. - New Patient This patient is new to me today: No - Critical Care Critical Care patient: No
--- NOTE | 2018-02-26 00:18 | DS ---
Physical Exam: SUBJECTIVE: Patient seen and examined at bedside. Patient expresses wishes to leave AMA Please see most recent progress note for physical exam HOSPITAL COURSE: Date of Admission:02/24/18 The patient is a 17 yo f w/ PMH Kidney Stones who came into the ED c/o a 1 day hx abdominal pain, flank pain and fever. The patient rdescribed RLQ pain as well as right flank and back pain. In the ED, she was found to have a fever to 101.4, a heart rate of 125 and a WBC count of 14.2. The patient had tenderness to palpation in the RLQ and CVA tenderness on the right. A CT of the abdomen and pelvis was taken to evaluate possible appendicitis and showed no inflammation of the appendix. A UA showed 2+ blood, 3+ leukocyte esterase and 182 WBC. Urine and blood cultures were sent. gonorrhea and chlamydial cultures were sent. The patient was admitted for the treatment of acute pyelonephritis. Infectious disease was consulted. Surgery was consulted. Urology was consulted. Surgery saw no indication for surgical intervention. A transvaginal US showed no evidence of TOA, rupture or cyst. an US of the kidney and bladder showed acute pyelonephritis. The patient was treated with rocephin, tylenol, ibuprofen and morphine. Despite the above treatment, the patient continued to spike fevers overnight and was found to have an increased WBC count at 17.3. The patient's rocephin was increased to 2g. On the evening of 02/26, prior to urological evaluation, the patient expressed the desire to leave AMA. The different risks of doing so were explained to the patient, including worsening of her infection, the development of sepsis, permanent damage to her kidneys as well as permanent disability and . The patient verbalized understanding of these risks and still wished to leave. Patient signed paper AMA form which was placed in the patient's chart. Date of Discharge: 02/26/18 Minutes to complete discharge: 40 Discharge Summary Reason For Visit: PYELONEPHRITIS,UTI Current Active Problems Acute cystitis with hematuria (Acute) Acute pyelonephritis (Acute) Anorexia (Acute) Appendicitis, unqualified (Acute) Fever presenting with conditions classified elsewhere (Acute) Leukocytosis (Acute) Nausea alone (Acute) Pyelonephritis (Acute) RLQ abdominal pain (Acute) RLQ abdominal tenderness (Acute) UTI (urinary tract infection) (Acute) Condition: Unchanged/Unknown - Instructions Diet, Activity, Other Instructions: You were admitted for the treatment of your kidney infection. You expressed the desire to sign out AMA knowing the risks of doing so. Please follow up with your primary care physician within one week of going home. You should follow up with a kidney doctor to keep track of your kidney health. Please see one within one week. If you begin to experience fevers, chills, worsening pain, or if any of your symptoms get worse, please call your doctor or return to the emergency department. Referrals: Stanislav Razo MD [Primary Care Provider] - Disposition: AGAINST MEDICAL ADVICE - Home Medications Comprehensive Discharge Medication List: Ambulatory Orders NK [No Known Home Medication] 09/15/16 This patient is new to me today: Yes Date on this admission: 02/26/18 Emergency Visit: No Critical Care patient: No - Discharge Referral Referred to [facility] Med P.C.: No
--- NOTE | 2018-02-26 06:55 | CONS ---
DATE OF CONSULTATION: DATE OF DICTATION: 02/26/2018 HISTORY OF PRESENT ILLNESS: This is a 17-year-old female who was admitted on February 24 with fever and abdominal pain that progressed and localized in her right flank and I am asked to see her for fever. She has not recently been on any antibiotics. She has no history of frequent UTIs. She does report about 3 months ago she was hospitalized with renal stones at [facility]. She had an extensive workup including a CAT scan of her abdomen, pelvic, transvaginal and renal ultrasound as well as a bladder ultrasound. She was seen in consultation by Surgery as well who did not feel she had appendicitis. Originally she had more nonspecific pain that eventually localized to her right flank. The morning that I am seeing her she reports feeling much improved. She denies any chest pain, shortness of breath, dysuria. She is receiving Depo injections for contraception and has not had a period for several months. There is no vomiting. Her white count on admission was 14.2. Urinalysis showed pyuria and CAT scan revealed acute pyelonephritis of the right kidney, normal enhancement of the uterus and both ovaries, no free pelvic fluid, normal cecum, terminal ileum with normal region of appendix visualized, no CT evidence of appendicitis. ALLERGIES: She has no known drug allergies. PAST MEDICAL HISTORY: Notable for the kidney stones. SOCIAL HISTORY: She smokes marijuana occasionally. No history of severe substance use. She is sexually active. She has 1 partner. They do not use any barrier protection. She reports following up regularly with her toucher up, Dr. Khan, and being regularly screened for STDs, including HIV, as well as routine Pap smears. MEDICATIONS: She takes no medications at home. FAMILY HISTORY: Notable for colon cancer in her grandmother. REVIEW OF SYSTEMS: Notable for the 1-day history of abdominal pain and fever. PHYSICAL EXAMINATION:General: She is a young woman in no acute distress. Vital Signs: Her T-max was 101.4 from admission, 100.3 the morning of February 25, pulse of 110, blood pressure 104/70, respiratory rate of 20. HEENT: She is normocephalic. Her eyes are anicteric. Neck: Supple. Lungs: Clear to auscultation. Heart: Regular rate and rhythm. Abdomen: Soft. She has minimal right flank tenderness. She has no suprapubic pain. The rest of her abdominal pain is resolved. Extremities: Without edema. LABORATORY DATA: White count was 17.3, hemoglobin 12.2, platelets of 156. BUN is 8 and creatinine is 0.5. LFTs are normal. Urinalysis had 3+ leukocytes with 182 white cells. Serum was negative and cultures are pending. IMAGING: As previously stated. ASSESSMENT: 1. In summary this is a young woman with clinically and radiographically right-sided pyelonephritis. No history to suggest history of resistant organisms. Would continue ceftriaxone and IV fluids and would follow up her cultures to make antibiotic adjustments if needed. I suspect in another 24 hours she will be ready to switch to oral antibiotics. 2. History of nephrolithiasis as well. Patient was offered repeat HIV testing which she declined as she continues to do this as an outpatient. She was counseled regarding testing for STDs and use of barrier contraception to prevent this. REMEDIOS CHEN M.D. [id number]
== END 2018-02-25 20:00 | disposition left against medical advice (07) | DRG 463 ==
LOC: JER 13:29 → JERBED 21:42 → OBSVTOIN 22:29 → J8W 23:49
PROVIDERS: ADMIT Internal Medicine; ATTEND Internal Medicine
DX: N10 Acute pyelonephritis (principal); N30.01 Acute cystitis with hematuria; R63.0 Anorexia; D72.829 Elevated white blood cell count, unspecified; R10.31 Right lower quadrant pain; R11.0 Nausea
CPT/HCPCS: 36415; 74177-TC; 76775-TC; 76830-TC; 76856-TC; 80048; 80053; 81003; 81015; 82550; 83605; 83690; 83735; 84100; 84484; 84703; 85025; 85027; 85610; 85730; 86850; 86900; 86901; 87040; 87081; 87086; 87491; 87591; 99284-25; G0378; J0131; J7030

== ENCOUNTER 2018-02-27 00:02 | Inpatient (IN) | payer SELFPAY ==
[2018-02-27 02:08] VITALS: BMI 23.6
--- NOTE | 2018-02-27 02:48 | PDOC ---
History of Present Illness - General Chief Complaint: Pain Stated Complaint: KIDNEY INFECTION Time Seen by Provider: 02/27/18 02:45 History Source: Patient - History of Present Illness Initial Comments: 02/27/18 05:47 17-year-old female recently admitted to the hospital for acute pyelonephritis and patient signed self out AGAINST MEDICAL ADVICE on 02/25/18 complaining of right flank pain, fever/chills Tmax of 100.4. Denies nausea/vomiting/diarrhea/ abdominal pain.. Past History - Past Medical History Allergies/Adverse Reactions: Allergies Allergy/AdvReac Type Severity Reaction Status Date / Time No Known Allergies Allergy Verified 02/27/18 02:01 Home Medications: Ambulatory Orders NK [No Known Home Medication] 09/15/16 Anemia: No Cancer: No Cardiac Disorders: No CVA: No COPD: No Dementia: No Diabetes: No HTN: No Hypercholesterolemia: No Seizures: No - Surgical History Appendectomy: No Cardiac Surgery: No Cholecystectomy: No Lung Surgery: No - Suicide/Smoking/Psychosocial Hx Smoking History: Never smoked Have you smoked in the past 12 months: No Information on smoking cessation initiated: No Hx Alcohol Use: No Drug/Substance Use Hx: No Substance Use Type: None Review of Systems - Review of Systems Able to Perform ROS?: Yes Is the patient limited Upper Sorbian proficient: No Constitutional: Yes: Fever : Yes: Flank Pain. No: Symptoms Reported, See HPI, Burning, Dysuria, Discharge, Frequency, Hematuria, Incontinence, Pain, Urgency, Testicular Mass, Testicular Swelling, Lesions, Testicular Pain, Other *Physical Exam - Vital Signs Last Vital Signs Temp Pulse Resp BP Pulse Ox 99.5 F 93 H 18 115/70 97 02/27/18 02:04 02/27/18 02:04 02/27/18 02:04 02/27/18 02:04 02/27/18 02:04 - Physical Exam General Appearance: Yes: Appropriately Dressed Respiratory/Chest: positive: Lungs Clear Gastrointestinal/Abdominal: positive: Other (suprapubic discomfort) Musculoskeletal: positive: CVA Tenderness, CVA Tenderness (R) Integumentary: positive: Normal Color, Dry, Warm Neurologic: positive: Fully Oriented, Alert, Normal Mood/Affect ED Treatment Course - LABORATORY CBC & Chemistry Diagram: 02/27/18 04:25 02/27/18 04:25 Progress Note - Progress Note Progress Note: A: pyelonephritis P: Labs blood culture urine culture patient to be readmitted for acute peylonephritis patient signed out to Dr. santacruz/ Dr. Resendiz *DC/Admit/Observation/Transfer Diagnosis at time of Disposition: Pyelonephritis - Discharge Dispostion Decision to Admit order: Yes - Referrals - Patient Instructions - Post Discharge Activity
[2018-02-27] MEDS ORDERED: SODIUM CHLORIDE 1,000 ML IV STA (02:49)
[2018-02-27 03:13] LABS: URINE APPEARANCE CLEAR; URINE BILIRUBIN NEGATIVE (<2.0 mg/dL); URINE COLOR YELLOW; URINE GLUCOSE (UA) NEGATIVE (NEGATIVE); URINE KETONE 2+ (NEGATIVE); URINE NITRITE NEGATIVE (NEGATIVE); URINE PROTEIN NEGATIVE (NEGATIVE); URINE UROBILINOGEN 4.0 E.U/dl mg/dL (0.2-1.0)
[2018-02-27 03:25] LABS: URINE LEUK ESTERASE 1+ (NEGATIVE)
[2018-02-27 03:27] LABS: EPI CELLS RARE /HPF (FEW); URINE MUCUS RARE
[2018-02-27] MEDS ORDERED: CEFTRIAXONE 1 GM in DEXTROSE 5%-WATER - 100 ML IVPB ONE (04:16)
[2018-02-27 04:33] LABS: VENOUS PC02 40.4 mmHg (38-52); VENOUS PH 7.37 (7.32-7.42); VENOUS PO2 23.6 mmHg (28-48)
[2018-02-27 04:37] LABS: BASO % 0.8 % (0-2.0); EOS % 2.7 % (0-4.5); HEMATOCRIT 38.5 % (32.4-45.2); HEMOGLOBIN 13.2 GM/dL (10.7-15.3); LYMPH % 23.7 % (8-40); MCH 31.2 pg (25.7-33.7); MCHC 34.2 g/dl (32.0-36.0); MEAN CELL VOLUME 91.3 fl (80-96); MEAN PLT VOLUME 10.2 fl (7.5-11.1); MONO % 7.9 % (3.8-10.2); NEUT % 64.9 % (42.8-82.8); PLATELET COUNT 185 K/MM3 (134-434); RBC 4.21 M/mm3 (3.60-5.2); RDW 13.2 % (11.6-15.6); WHITE BLOOD COUNT 9.2 K/mm3 (4.0-10.0)
[2018-02-27 04:46] LABS: INR 1.16 (0.83-1.09); PROTHROMBIN TIME (PATIENT) 13.1 SEC (9.7-13.0)
[2018-02-27] MEDS ORDERED: ACETAMINOPHEN 1000 MG/100 ML VIAL (NON FORMULARY) IVPB ONE (04:48)
[2018-02-27 04:49] LABS: ACTIVATED PTT 27.7 SECONDS (25.2-36.5)
[2018-02-27 04:56] LABS: ALBUMIN 3.7 g/dl (3.4-5.0); ANION GAP 10 MMOL/L (8-16); BILIRUBIN,TOTAL 0.4 mg/dL (0.2-1.0); BLOOD UREA NITROGEN 8 mg/dL (7-18); CALCIUM 8.7 mg/dL (8.5-10.1); CHLORIDE 104 mmol/L (98-107); CO2 23 mmol/L (21-32); CREATININE 0.5 mg/dL (0.55-1.02); GLUCOSE,RANDOM 79 mg/dL (74-106); SGPT/ALT 23 U/L (12-78); SODIUM 137 mmol/L (136-145); TOT PROT 7.7 g/dl (6.4-8.2)
[2018-02-27 04:57] LABS: ALK PHOS 95 U/L (45-117); POTASSIUM 3.9 mmol/L (3.5-5.1); SGOT/AST 25 U/L (15-37)
[2018-02-27] MEDS ORDERED: ACETAMINOPHEN 325 MG TABLET (FP) PO PRN (05:44)
[2018-02-27] MEDS ORDERED: SODIUM CHLORIDE 1,000 ML IV SCH (05:45)
--- NOTE | 2018-02-27 05:51 | HP ---
CHIEF COMPLAINT: abdominal pain PCP: Dr. Razo HISTORY OF PRESENT ILLNESS: The patient is a 17 yo f w/ PMH Kidney Stones who comes into the ED c/o right flank pain, abdominal pain and fever. The patient was admitted to [facility] for treatment of acute pyelonephritis and left AMA on 02/25. The patient returns to the ED today stating that her right flank pain has not gotten any better. She also endorsed a fever to 100.7 at home. She saw her PMD after leaving the hospital, who gave her ciprofloxacin. She took one dose before returning to the hospital. Patient denies dysuria, chest pain, SOB, nausea and vomiting. ER course was notable for: (1) Ceftriaxone 1g (2) UA showing 1+ leuk and 32 WBC (3) UCx, BCx sent Recent Travel: none PAST MEDICAL HISTORY: see HPI PAST SURGICAL HISTORY: denies Social History: Smoking: denies Alcohol: denies Drugs: occasional marijuana smoker Family History: Allergies No Known Allergies Allergy (Verified 02/27/18 02:01) HOME MEDICATIONS: Home Medications Medication Instructions Recorded NK [No Known Home Medication] 09/15/16 REVIEW OF SYSTEMS CONSTITUTIONAL: Absent: fever, chills, diaphoresis, generalized weakness, malaise, loss of appetite, weight change HEENT: Absent: rhinorrhea, nasal congestion, throat pain, throat swelling, difficulty swallowing, mouth swelling, ear pain, eye pain, visual changes CARDIOVASCULAR: Absent: chest pain, syncope, palpitations, irregular heart rate, lightheadedness , peripheral edema RESPIRATORY: Absent: cough, shortness of breath, dyspnea with exertion, orthopnea, wheezing, stridor, hemoptysis GASTROINTESTINAL: Absent: abdominal distension, nausea, vomiting, diarrhea, constipation, melena, hematochezia GENITOURINARY: Absent: dysuria, frequency, urgency, hesitancy, hematuria, genital pain MUSCULOSKELETAL: Absent: myalgia, arthralgia, joint swelling, back pain, neck pain SKIN: Absent: rash, itching, pallor HEMATOLOGIC/IMMUNOLOGIC: Absent: easy bleeding, easy bruising, lymphadenopathy, frequent infections ENDOCRINE: Absent: unexplained weight gain, unexplained weight loss, heat intolerance, cold intolerance NEUROLOGIC: Absent: headache, focal weakness or paresthesias, dizziness, unsteady gait, seizure, mental status changes, bladder or bowel incontinence PSYCHIATRIC: Absent: anxiety, depression, suicidal or homicidal ideation, hallucinations. PHYSICAL EXAMINATION Vital Signs - 24 hr 02/27/18 02:04 Temperature 99.5 F Pulse Rate 93 H Respiratory 18 Rate Blood Pressure 115/70 O2 Sat by Pulse 97 Oximetry (%) GENERAL: Awake, alert, and fully oriented, in no acute distress. HEAD: Normal with no signs of trauma. EYES: Pupils equal, round and reactive to light, extraocular movements intact, sclera anicteric, conjunctiva clear. No lid lag. EARS, NOSE, THROAT: oropharynx clear without exudates. Moist mucous membranes. NECK: Normal range of motion, supple without lymphadenopathy, JVD, or masses. LUNGS: Breath sounds equal, clear to auscultation bilaterally. No wheezes, and no crackles. No accessory muscle use. HEART: Regular rhythm, Tachycardic, normal S1 and S2 without murmur, rub or gallop. ABDOMEN: Soft, not distended, normoactive bowel sounds, no guarding. There is tenderness to palpation in the RLQ and the right flank without rebound. There is CVA tenderness on the right. No suprapubic tenderness. LOWER EXTREMITIES: 2+ pulses, warm, well-perfused. No calf tenderness. No peripheral edema. NEUROLOGICAL: Cranial nerves II-X intact. Normal speech. PSYCHIATRIC: Cooperative. Good eye contact. Appropriate mood and affect. SKIN: Warm, dry, normal turgor, no rashes or lesions noted, normal capillary refill. Laboratory Results - last 24 hr 02/27/18 02/27/18 02/27/18 02:51 04:25 04:25 WBC 9.2 RBC 4.21 Hgb 13.2 Hct 38.5 MCV 91.3 MCH 31.2 MCHC 34.2 RDW 13.2 Plt Count 185 MPV 10.2 Absolute Neuts (auto) 5.9 Neutrophils % 64.9 D Lymphocytes % 23.7 D Monocytes % 7.9 D Eosinophils % 2.7 Basophils % 0.8 Nucleated RBC % 0 PT with INR 13.10 H INR 1.16 H PTT (Actin FS) 27.7 VBG pH POC VBG pCO2 POC VBG pO2 Mixed VBG HCO3 Sodium Potassium Chloride Carbon Dioxide Anion Gap BUN Creatinine Creat Clearance w eGFR Random Glucose Calcium Total Bilirubin AST ALT Alkaline Phosphatase Total Protein Albumin Serum , Qual Urine Color Yellow Urine Appearance Clear Urine pH 6.0 Ur Specific [place] 1.017 Urine Protein Negative Urine Glucose (UA) Negative Urine Ketones 2+ H Urine Blood 1+ H Urine Nitrite Negative Urine Bilirubin Negative Urine Urobilinogen 4.0 e.u/dl H Ur Leukocyte Esterase 1+ H D Urine WBC (Auto) 32 Urine RBC (Auto) 5 Ur Epithelial Cells Rare Urine Mucus Rare 02/27/18 02/27/18 02/27/18 04:25 04:25 05:16 WBC RBC Hgb Hct MCV MCH MCHC RDW Plt Count MPV Absolute Neuts (auto) Neutrophils % Lymphocytes % Monocytes % Eosinophils % Basophils % Nucleated RBC % PT with INR INR PTT (Actin FS) VBG pH 7.37 POC VBG pCO2 40.4 POC VBG pO2 23.6 L Mixed VBG HCO3 22.9 Sodium 137 Potassium 3.9 Chloride 104 Carbon Dioxide 23 Anion Gap 10 BUN 8 Creatinine 0.5 L Creat Clearance w eGFR > 60 Random Glucose 79 Calcium 8.7 Total Bilirubin 0.4 AST 25 ALT 23 Alkaline Phosphatase 95 Total Protein 7.7 Albumin 3.7 Serum , Qual Negative Urine Color Urine Appearance Urine pH Ur Specific [place] Urine Protein Urine Glucose (UA) Urine Ketones Urine Blood Urine Nitrite Urine Bilirubin Urine Urobilinogen Ur Leukocyte Esterase Urine WBC (Auto) Urine RBC (Auto) Ur Epithelial Cells Urine Mucus ASSESSMENT/PLAN: The patient is a 17 yo f w/ PMH nehphrolithiasis who comes into the ED c/o a 1 day hx RLQ and right flank pain found to have UTI. #Abdominal and flank pain likely 2/2 pyelonephritis -UA improved since last admission, but positive for UTI -Urine culture from last admission negative -rpt Urine culture sent -s/p 1g rocephin in ED -c/w rocephin 1g ben -NS @ 100x 1 bag #FEN -NS @ 100 -lytes WNL -regular diet #Prophy -Hep SQ 5kU TID #Dispo -admit med surg obs Visit type - Emergency Visit Emergency Visit: Yes Care time: The patient presented to the Emergency Department on the above date and was hospitalized for further evaluation of their emergent condition. - New Patient This patient is new to me today: Yes Date on this admission: 02/27/18 - Critical Care Critical Care patient: No Hospitalist Screening - Colonoscopy Questionnaire Colonoscopy Questionnaire: Colonoscopy Questionnaire - Patient: 50 - 75 years old and never had a screening colonoscopy: Unknown History of colon or rectal polyps, or CA: Unknown History of IBD, Crohn's disease or UC: Unknown History of abdominal radiation therapy as a child: Unknown - Relative: 1 with colon or rectal CA, or polyps at age 60 or younger: Unknown Colon or rectal CA diagnosed at age 45 or younger: Unknown Multiple relatives with colon or rectal CA: Unknown - Outcome: Screening Result: Negative Screen
--- NOTE | 2018-02-27 06:04 | PN ---
Teaching Attending Note Name of Resident: Cristian Thakur ATTENDING PHYSICIAN STATEMENT I saw and evaluated the patient. Chart, data, imaging reviewed. I reviewed the resident's note and discussed the case with the resident. I agree with the resident's findings and plan as documented. SUBJECTIVE: 17-year-old female recently admitted to the hospital for acute pyelonephritis and patient signed self out AMA on 02/25, CT of abdomen/pelvis at that time showed right sided pyelo. Patient returned due to persistent pain in right flank. No nausea or vomiting. OBJECTIVE: Last Vital Signs Temp Pulse Resp BP Pulse Ox 99.5 F 93 H 18 115/70 97 02/27/18 02:04 02/27/18 02:04 02/27/18 02:04 02/27/18 02:04 02/27/18 02:04 general- nad, aaox3 heent- at, nc neck - supple cv - s1+s2+ rrr chest- cta b/l abdomen- soft, right sided cva tenderness ext- no pedal edema Abnormal Lab Results 02/27/18 02/27/18 02/27/18 02:51 04:25 04:25 PT with INR 13.10 H INR 1.16 H POC VBG pO2 23.6 L Creatinine Urine Ketones 2+ H Urine Blood 1+ H Urine Urobilinogen 4.0 e.u/dl H Ur Leukocyte Esterase 1+ H D 02/27/18 04:25 PT with INR INR POC VBG pO2 Creatinine 0.5 L Urine Ketones Urine Blood Urine Urobilinogen Ur Leukocyte Esterase ASSESSMENT AND PLAN: #17yo woman with right sided pyelonephritis. Does not appear to be septic. -blood cultures x2 -observation -f/u lactate -urine culture -IV fluid hydration -ceftriaxone 1g IV q24hrs -tylenol PO prn if pain -heparin sc for dvt ppx
[2018-02-27] MEDS ORDERED: HEPARIN NA (PORCINE) 5,000 UNITS/ML 1ML VIAL SQ SCH ×2 (07:30→14:00)
--- NOTE | 2018-02-27 09:16 | PN ---
Physical Exam: SUBJECTIVE: Patient seen and examined at bedside. Pain in R back/flank present but reduced, otherwise no complaints. OBJECTIVE: Vital Signs Period Temp Pulse Resp BP Sys/Moreno Pulse Ox Last 24 Hr 98.4 F-99.5 F 78-93 14-18 97-115/55-70 97-97 GENERAL: A&Ox3, NAD HEAD: NC/AT EYES: PERRLA, EOMI ENT: moist mucous membranes NECK: Trachea midline, full range of motion, supple. LUNGS: Breath sounds equal, clear to auscultation bilaterally, no wheezes, no crackles, no accessory muscle use HEART: Regular rate and rhythm, S1, S2 without murmur, rub or gallop. ABDOMEN: Soft, mildly TTP in RLQ, nondistended, normoactive bowel sounds, no guarding, no rebound, no hepatosplenomegaly, no masses. EXTREMITIES: 2+ pulses, warm, well-perfused, no edema. NEUROLOGICAL: CNII-XII intact, 5/5 strength throughout, sensorium intact, normal speech, gait not observed. PSYCH: Normal mood, normal affect. SKIN: Warm, dry, normal turgor, no rashes or lesions noted Laboratory Results - last 24 hr 02/27/18 02/27/18 02/27/18 02:51 04:25 04:25 WBC 9.2 RBC 4.21 Hgb 13.2 Hct 38.5 MCV 91.3 MCH 31.2 MCHC 34.2 RDW 13.2 Plt Count 185 MPV 10.2 Absolute Neuts (auto) 5.9 Neutrophils % 64.9 D Lymphocytes % 23.7 D Monocytes % 7.9 D Eosinophils % 2.7 Basophils % 0.8 Nucleated RBC % 0 PT with INR 13.10 H INR 1.16 H PTT (Actin FS) 27.7 VBG pH POC VBG pCO2 POC VBG pO2 Mixed VBG HCO3 Sodium Potassium Chloride Carbon Dioxide Anion Gap BUN Creatinine Creat Clearance w eGFR Random Glucose Lactic Acid Calcium Total Bilirubin AST ALT Alkaline Phosphatase Total Protein Albumin Serum , Qual Urine Color Yellow Urine Appearance Clear Urine pH 6.0 Ur Specific [place] 1.017 Urine Protein Negative Urine Glucose (UA) Negative Urine Ketones 2+ H Urine Blood 1+ H Urine Nitrite Negative Urine Bilirubin Negative Urine Urobilinogen 4.0 e.u/dl H Ur Leukocyte Esterase 1+ H D Urine WBC (Auto) 32 Urine RBC (Auto) 5 Ur Epithelial Cells Rare Urine Mucus Rare 02/27/18 02/27/18 02/27/18 04:25 04:25 04:25 WBC RBC Hgb Hct MCV MCH MCHC RDW Plt Count MPV Absolute Neuts (auto) Neutrophils % Lymphocytes % Monocytes % Eosinophils % Basophils % Nucleated RBC % PT with INR INR PTT (Actin FS) VBG pH 7.37 POC VBG pCO2 40.4 POC VBG pO2 23.6 L Mixed VBG HCO3 22.9 Sodium 137 Potassium 3.9 Chloride 104 Carbon Dioxide 23 Anion Gap 10 BUN 8 Creatinine 0.5 L Creat Clearance w eGFR > 60 Random Glucose 79 Lactic Acid 0.7 Calcium 8.7 Total Bilirubin 0.4 AST 25 ALT 23 Alkaline Phosphatase 95 Total Protein 7.7 Albumin 3.7 Serum , Qual Urine Color Urine Appearance Urine pH Ur Specific [place] Urine Protein Urine Glucose (UA) Urine Ketones Urine Blood Urine Nitrite Urine Bilirubin Urine Urobilinogen Ur Leukocyte Esterase Urine WBC (Auto) Urine RBC (Auto) Ur Epithelial Cells Urine Mucus 02/27/18 05:16 WBC RBC Hgb Hct MCV MCH MCHC RDW Plt Count MPV Absolute Neuts (auto) Neutrophils % Lymphocytes % Monocytes % Eosinophils % Basophils % Nucleated RBC % PT with INR INR PTT (Actin FS) VBG pH POC VBG pCO2 POC VBG pO2 Mixed VBG HCO3 Sodium Potassium Chloride Carbon Dioxide Anion Gap BUN Creatinine Creat Clearance w eGFR Random Glucose Lactic Acid Calcium Total Bilirubin AST ALT Alkaline Phosphatase Total Protein Albumin Serum , Qual Negative Urine Color Urine Appearance Urine pH Ur Specific [place] Urine Protein Urine Glucose (UA) Urine Ketones Urine Blood Urine Nitrite Urine Bilirubin Urine Urobilinogen Ur Leukocyte Esterase Urine WBC (Auto) Urine RBC (Auto) Ur Epithelial Cells Urine Mucus Active Medications Generic Name Dose Route Start Last Admin Trade Name Freq PRN Reason Stop Dose Admin Acetaminophen 650 mg 02/27/18 05:44 Tylenol - PO Q4H PRN PAIN LEVEL 6-10 Heparin Sodium (Porcine) 5,000 unit 02/27/18 07:30 Heparin - SQ TID NICA Sodium Chloride 1,000 mls @ 100 mls/hr 02/27/18 05:45 02/27/18 06:03 Normal Saline - IV 02/27/18 15:44 100 mls/hr ASDIR NICA Administration Ceftriaxone Sodium 1 gm/ 100 mls @ 200 mls/hr 02/27/18 10:00 Dextrose IVPB DAILY NICA ASSESSMENT/PLAN: 17 y/o F w/ PMHx nephrolithiasis p/w R flank pain not improving after admission 2 days prior for pyelonephritis and leaving AMA #Pyelonephritis -received 1 dose ceftriaxone 1g on 02/24, 1 dose Cipro outpatient -WBC 17.3 on 02/24, 9.2 on this presentation -Imaging from 02/24 admission: -CT a/p: pyelo R kidney -kidney/bladder US; pyelo R kidney, no stones -transvaginal/pelvic US: normal -repeat renal US: no acute pathology, no hydronephrosis -CXR: normal -UA improved since last admission, but positive for UTI (WBC 182-->32) -UCx, BCx pending -c/w rocephin 1g daily -NS @ 100 -G/C pending -negative bhCG #abnormal EKG -t inversions in V1,V2,V3 -echo ordered -repeat EKG ordered #FEN -NS @ 100 -lytes WNL -regular diet #DVT PPx -SCDs, early ambulation, PT consulted #Dispo -med/surg Visit type - Emergency Visit Emergency Visit: No - New Patient This patient is new to me today: Yes Date on this admission: 02/27/18 - Critical Care Critical Care patient: No
[2018-02-27] MEDS ORDERED: CEFTRIAXONE 1 GM in DEXTROSE 5%-WATER 100 ML IVPB SCH (10:00)
--- NOTE | 2018-02-27 11:59 | EKG ---
Test Reason : Blood Pressure : / mmHG Vent. Rate : 081 BPM Atrial Rate : 081 BPM P-R Int : 150 ms QRS Dur : 076 ms QT Int : 342 ms P-R-T Axes : 067 075 039 degrees QTc Int : 397 ms NORMAL SINUS RHYTHM NONSPECIFIC T WAVE ABNORMALITY ABNORMAL ECG NO PREVIOUS ECGS AVAILABLE Confirmed by DANYELLE MENDEZ, DIONNE ([id number]) on 02/27/2018 11:58:39 AM Referred By: Confirmed By:DIONNE BASSETT MD
--- NOTE | 2018-02-27 14:03 | PN ---
Teaching Attending Note Name of Resident: Kwabena Marin ATTENDING PHYSICIAN STATEMENT I saw and evaluated the patient. I reviewed the resident's note and discussed the case with the resident. I agree with the resident's findings and plan as documented. SUBJECTIVE: No fever or chills . reports fever at home yesterday. cont to have R sided flank pain. no dysuria. took one dose of Abx that started with C yesterday . OBJECTIVE: NAD Cv ; RRR. No MRG Lungs: CTAB Abd; soft, NT, ND , NL BS. R CVA tenderness Ext; no edema ASSESSMENT AND PLAN: 17 y/o lady with h/o nephrolithiasis and recent hospitslization for R pyelonephritis , left AMA on 02/25. She presented with persistent fever and R sided flank pain. 1- R sided pyelonephritis : CT scan las admission with no evidence of stones. urine cx o n 02/24 neg but he received Abx before cx was sent. - cont ceftriaxone - follow repeat blood cx and urine cx - renal US o r/o abscess formation - advised to adhere to medical recommendations 2- TWI inversion in anteroseptal leads. No EKG in records to compare to. - will try to contact PCP . - if no previous EKG available, will get Echo
[2018-02-27] MEDS: HEPARIN NA (PORCINE) 5,000 UNITS/ML 1ML VIAL SQ SCH (22:41)
[2018-02-28] MEDS ORDERED: CEFTRIAXONE 1 GM in DEXTROSE 5%-WATER - 50 ML IVPB SCH (05:00)
[2018-02-28] MEDS ORDERED: DEXTROSE 5%-WATER - 50 ML IVPB ONE (05:02)
[2018-02-28] MEDS ORDERED: cefTRIAXone SODIUM 1 GM VIAL ONE (05:02)
[2018-02-28] MEDS: HEPARIN NA (PORCINE) 5,000 UNITS/ML 1ML VIAL SQ SCH ×2 (05:21→15:00)
[2018-02-28 07:20] LABS: BASO % 1.3 % (0-2.0); EOS % 6.2 % (0-4.5); HEMATOCRIT 36.5 % (32.4-45.2); HEMOGLOBIN 12.2 GM/dL (10.7-15.3); MCH 30.3 pg (25.7-33.7); MCHC 33.4 g/dl (32.0-36.0); MEAN CELL VOLUME 90.8 fl (80-96); MEAN PLT VOLUME 9.4 fl (7.5-11.1); MONO % 9.6 % (3.8-10.2); NEUT % 47.9 % (42.8-82.8); PLATELET COUNT 206 K/MM3 (134-434); RBC 4.02 M/mm3 (3.60-5.2); RDW 13.2 % (11.6-15.6); WHITE BLOOD COUNT 6.6 K/mm3 (4.0-10.0)
[2018-02-28 07:54] LABS: ANION GAP 13 MMOL/L (8-16); BLOOD UREA NITROGEN 6 mg/dL (7-18); CHLORIDE 106 mmol/L (98-107); CO2 21 mmol/L (21-32); CREATININE 0.5 mg/dL (0.55-1.02); GLUCOSE,RANDOM 84 mg/dL (74-106); POTASSIUM 3.8 mmol/L (3.5-5.1); SODIUM 140 mmol/L (136-145)
--- NOTE | 2018-02-28 12:07 | ECHO ---
Name: SANDY OG Exam:Adult Echocardiogram Study Date: 02/28/2018 08:22 AM Age: 17 yrs Reason For Study: ABN EKG Height: 60 in Weight: 121 lb BSA: 1.5 m2 MMode/2D Measurements & Calculations IVSd: 0.67 cm Ao root diam: 2.2 cm LVIDd: 4.4 cm LA dimension: 2.9 cm LVIDs: 2.8 cm LVPWd: 0.71 cm EDV(Teich): 89.0 ml LVOT diam: 1.6 cm ESV(Teich): 29.2 ml Doppler Measurements & Calculations MV E max carlos: 106.5 cm/sec TR max carlos: 185.7 cm/sec MV A max carlos: 61.7 cm/sec TR max P.8 mmHg MV E/A: 1.7 MV dec time: 0.16 sec Med Peak E' Carlos: 11.4 cm/sec Med E/e': 9.3 Lat Peak E' Carlos: 17.7 cm/sec Lat E/e': 6.0 Procedure A complete two-dimensional transthoracic echocardiogram was performed (2D, M-mode, Doppler and color flow Doppler). Left Ventricle The left ventricular size, thickness and function are normal. The left ventricular ejection fraction is normal. Ejection Fraction = 60-65%. Left Ventricular Filling pattern is normal for age. The left vent ricular wall motion is normal. Right Ventricle The right ventricle is normal in size and function. Atria Normal left and right atrial size and function. Mitral Valve There is no mitral regurgitation noted. Tricuspid Valve There is trace tricuspid regurgitation. There was insufficient TR detected to calculate RV systolic p ressure. Aortic Valve The aortic valve is trileaflet. No hemodynamically significant valvular aortic stenosis. No aortic regurgitation is present. Pulmonic Valve There is no pulmonic valvular regurgitation. Great Vessels The aortic root is normal size. Pericardium/Pleura There is no pericardial effusion. Interpretation Summary The left ventricular size, thickness and function are normal. The right ventricle is normal in size and function. There is trace tricuspid regurgitation. MD Stanislav Griffin 02/28/2018 11:31 AM
--- NOTE | 2018-02-28 12:46 | PN ---
Teaching Attending Note Name of Resident: Farshad Deloen ATTENDING PHYSICIAN STATEMENT I saw and evaluated the patient. I reviewed the resident's note and discussed the case with the resident. I agree with the resident's findings and plan as documented. SUBJECTIVE: no pain in flank, no fever or hcills. she feels better . OBJECTIVE: NAD Cv; RRR. No MRG Lungs: CTAB Abd; soft, NT, ND, NL BS. Ext; no edema ASSESSMENT AND PLAN: 17 y/o lady with h/o nephrolithiasis and recent hospitslization for R pyelonephritis , left AMA on 02/25. She presented with persistent fever and R sided flank pain. 1- R sided pyelonephritis : neg urine cx this admission but has been on Abx - clinically she is doing much better. No leukocytosis or fever - blood cx neg x 24 hr - renal US o r/o abscess formation - switch to po abx x 12 more days 2- TWI inversion in anteroseptal leads.repeat EKG with no change . . -echo with no significant pathology,( mild tricuspid regurgitation - f/u with PCP /card as out pt dispo : dc home
--- NOTE | 2018-02-28 13:42 | EKG ---
Test Reason : Blood Pressure : / mmHG Vent. Rate : 076 BPM Atrial Rate : 076 BPM P-R Int : 148 ms QRS Dur : 082 ms QT Int : 348 ms P-R-T Axes : 062 080 026 degrees QTc Int : 391 ms NORMAL SINUS RHYTHM NONSPECIFIC T WAVE ABNORMALITY ABNORMAL ECG WHEN COMPARED WITH ECG OF 27-FEB-2018 03:22, NO SIGNIFICANT CHANGE WAS FOUND Confirmed by APURVA BETANCUR MD ([id number]) on 02/28/2018 1:42:02 PM Referred By: SIMÓN MONTIEL Confirmed By:APURVA BETANCUR MD
--- NOTE | 2018-02-28 13:51 | PN ---
Physical Exam: SUBJECTIVE: Patient seen and examined OBJECTIVE: Vital Signs Period Temp Pulse Resp BP Sys/Moreno Pulse Ox Last 24 Hr 97.5 F-99.2 F 76-93 18-20 99-114/54-74 97-99 GENERAL: The patient is awake, alert, and fully oriented, in no acute distress. HEAD: Normal with no signs of trauma. EYES: PERRL, extraocular movements intact, sclera anicteric, conjunctiva clear. No ptosis. ENT: Ears normal, nares patent, oropharynx clear without exudates, moist mucous membranes. NECK: Trachea midline, full range of motion, supple. LUNGS: Breath sounds equal, clear to auscultation bilaterally, no wheezes, no crackles, no accessory muscle use. HEART: Regular rate and rhythm, S1, S2 without murmur, rub or gallop. ABDOMEN: Soft, nontender, nondistended, normoactive bowel sounds, no guarding, no rebound, no hepatosplenomegaly, no masses. EXTREMITIES: 2+ pulses, warm, well-perfused, no edema. NEUROLOGICAL: Cranial nerves II through XII grossly intact. Normal speech, gait not observed. PSYCH: Normal mood, normal affect. SKIN: Warm, dry, normal turgor, no rashes or lesions noted Laboratory Results - last 24 hr 02/28/18 02/28/18 06:00 06:00 WBC 6.6 RBC 4.02 Hgb 12.2 Hct 36.5 MCV 90.8 MCH 30.3 MCHC 33.4 RDW 13.2 Plt Count 206 MPV 9.4 Absolute Neuts (auto) 3.2 Neutrophils % 47.9 D Lymphocytes % 35.0 D Monocytes % 9.6 Eosinophils % 6.2 H D Basophils % 1.3 Nucleated RBC % 0 Sodium 140 Potassium 3.8 Chloride 106 Carbon Dioxide 21 Anion Gap 13 BUN 6 L Creatinine 0.5 L Creat Clearance w eGFR > 60 Random Glucose 84 Calcium 9.0 Active Medications Generic Name Dose Route Start Last Admin Trade Name Freq PRN Reason Stop Dose Admin Acetaminophen 650 mg 02/27/18 05:44 Tylenol - PO Q4H PRN PAIN LEVEL 6-10 Heparin Sodium (Porcine) 5,000 unit 02/27/18 22:00 02/28/18 05:21 Heparin - SQ Not Given [facility] Ceftriaxone Sodium 1 gm/ 50 mls @ 100 mls/hr 02/28/18 05:00 02/28/18 05:22 Dextrose IVPB 100 mls/hr Q24H NICA Administration ASSESSMENT/PLAN:
--- NOTE | 2018-02-28 13:52 | DS ---
Physical Exam: SUBJECTIVE: Patient seen and examined, pain well-controlled, no complaints. OBJECTIVE: Vital Signs Period Temp Pulse Resp BP Sys/Moreno Pulse Ox Last 24 Hr 97.5 F-99.2 F 76-93 18-20 99-114/54-74 97-99 PHYSICAL EXAM GENERAL: A&Ox3, NAD HEAD: NC/AT EYES: PERRLA, EOMI ENT: moist mucous membranes NECK: Trachea midline, full range of motion, supple. LUNGS: Breath sounds equal, clear to auscultation bilaterally, no wheezes, no crackles, no accessory muscle use HEART: Regular rate and rhythm, S1, S2 without murmur, rub or gallop. ABDOMEN: Soft, non-tender, nondistended, normoactive bowel sounds, no guarding, no rebound, no hepatosplenomegaly, no masses. Mild residual R CVA tenderness. EXTREMITIES: 2+ pulses, warm, well-perfused, no edema. NEUROLOGICAL: CNII-XII intact, 5/5 strength throughout, sensorium intact, normal speech, gait not observed. PSYCH: Normal mood, normal affect. SKIN: Warm, dry, normal turgor, no rashes or lesions noted LABS Laboratory Results - last 24 hr 02/28/18 02/28/18 06:00 06:00 WBC 6.6 RBC 4.02 Hgb 12.2 Hct 36.5 MCV 90.8 MCH 30.3 MCHC 33.4 RDW 13.2 Plt Count 206 MPV 9.4 Absolute Neuts (auto) 3.2 Neutrophils % 47.9 D Lymphocytes % 35.0 D Monocytes % 9.6 Eosinophils % 6.2 H D Basophils % 1.3 Nucleated RBC % 0 Sodium 140 Potassium 3.8 Chloride 106 Carbon Dioxide 21 Anion Gap 13 BUN 6 L Creatinine 0.5 L Creat Clearance w eGFR > 60 Random Glucose 84 Calcium 9.0 MICROBIOLOGY UCx 02/27/18: No growth BCx 02/27/18: NGTD IMAGING CXR 02/27/18: "No evidence of active pulmonary disease." Renal US 02/27/18: "Morphologically normal kidneys and no evidence of hydronephrosis or acute pathology." Echocardiogram 02/28/18: "Trace tricuspid regurgitation" HOSPITAL COURSE: Date of Admission:02/27/18 The patient is a 17 y/o F w/ PMHx nephrolithiasis who was admitted for pyelonephritis on 02/24/18 and left against medical advice on 02/26/18. Please refer to discharge summary for that admission for relevant information on hospital course, treatment, imaging, etc. Of note, patient had CT-proven pyelonephritis with no renal stones, received a dose of ceftriaxone prior to collection of urine and blood for culture, as well as a dose of ciprofloxacin on an outpatient basis following her AMA. She returned to the hospital for persistent right flank pain and fever on home measurement on 02/27/18 and was re- admitted for pyelonephritis. Imaging studies as per above, no evidence of abscess formation in the affected kidney. Microbiology as per above but note prior treatment with antibiotics. Patient was restarted on ceftriaxone on admission and received two days of treatment. UA on admission still positive for WBC but significantly reduced vs presentation on 02/24/18. Incidentally found to have t-wave inversions in V1,V2,V3 on EKG. Repeat EKG unchanged on HD2. Echocardiogram as per above. She improved clinically and per lab studies and was asymptomatic apart from mild lingering CVA tenderness by hospital day 2. Due to ABx prior to admission, PO ABx were determined empirically. She was discharged on a 12 day course of Cefixime and referred for outpatient followup with her PCP as well as to cardiology for outpatient evaluation of EKG abnormalities. Date of Discharge: 02/28/18 Minutes to complete discharge: 40 Discharge Summary Reason For Visit: PYELONEPHRITIS Current Active Problems Pyelonephritis (Acute) UTI (urinary tract infection) (Acute) Condition: Improved - Instructions Diet, Activity, Other Instructions: You were hospitalized for a urinary tract infection that spread to your kidney. You were treated with IV antibiotics and had a kidney ultrasound to ensure that the infection was under control. You additionally underwent studies of your heart, which you should follow on an outpatient basis.. Referrals Please follow up with your primary medical doctor within one week of discharge. A referral has been made for you. Please follow with Dr. Dobbs from cardiology within one week of discharge due to the EKG changes we saw. Your echo did not show significant pathology. Medications/medical recommendations You are being discharged on an oral antibiotic called Cefixime (also known as Suprax) to continue treatment of your infection. It is imperative that you take this medication every day for the next 12 days to ensure that your infection is cured. If you experience any fever, chills, new or worsening flank pain, new or worsening burning when you urinate, blood in your urine, or any other new symptom, please return to the Emergency Department immediately. Referrals: Stanislav Razo MD [Primary Care Provider] - 1 Week Stanislaw Dobbs MD [Staff Physician] - 1 Week Disposition: HOME - Home Medications Comprehensive Discharge Medication List: Ambulatory Orders Cefixime [Suprax -] 400 mg PO DAILY #12 capsule 02/28/18 This patient is new to me today: No Emergency Visit: No Critical Care patient: No - Discharge Referral Referred to [facility] No
[2018-02-28 13:58] VITALS: BP 106/58; PULSE 81; TEMP 98.4
== END 2018-02-28 16:00 | disposition home or self-care (01) | DRG 463 ==
LOC: JER 00:02 → JERBED 05:49 → J6S 09:19 → OBSVTOIN 13:57
PROVIDERS: ADMIT Internal Medicine; ATTEND Internal Medicine
DX: N10 Acute pyelonephritis (principal); I36.1 Nonrheumatic tricuspid (valve) insufficiency; F12.10 Cannabis abuse, uncomplicated
CPT/HCPCS: 36415; 71045-TC-FY; 76775-TC; 80048; 80053; 81003; 81015; 82803; 83605; 84703; 85025; 85610; 85730; 87040; 87086; 93005; 93010; 93306-TC; 97116-GP; 97161-GP; 99285-25; G0378; J0131; J1644; J7030

== ENCOUNTER 2018-11-24 00:49 | Emergency (ER) | payer OTHER | END 2018-11-24 04:47 | disposition home or self-care (01) | LOC: JER 00:49 ==